=== PATIENT | female | born 1985 | race African-American/Black ===

== ENCOUNTER 2025-07-02 21:40 | Inpatient (IN) | payer SELFPAY ==
[2025-07-02] VITALS (7 sets, daily range): BP systolic 125–169; BP diastolic 84–109; BMI 48.0
--- NOTE | 2025-07-02 16:02 | ED.GENMED ---
History of Present Illness
General
Chief Complaint: Chest Pain
Source: patient
Exam Limitations: none
Time Seen by Provider: 07/02/25 15:02
History of Present Illness
History of Present Illness:
40-year-old female complaining of fever cough congestion chest pain crisis pain of her other joints and hemoptysis. Started a week ago with URI symptoms. Also at that time developed her typical crisis symptoms. Has a history of DVT PE. Has
stopped her Lovenox months ago. Shortness of breath is typical for her crisis but worse than normal.
Past History
Past History
ED Past Medical History: Other (Sickle cell crisis)
ED Past Surgical History: Appendectomy and Other (Perirectal abscess. Breast implants. [place] teeth)
Review of Systems
Review of Systems
All Other Systems: Not applicable
Constitutional: Reports fever and chills
Respiratory: Reports cough and hemoptysis
Cardiac: Denies syncope
ABD/GI: Denies abdominal pain
Phy Exam
Physical Exam
Physical Exam:
GENERAL: Alert and oriented. Nontoxic.
EYE: Orbits normal.
NECK: Supple, no significant adenopathy.
ENT: Pharynx without erythema
CARDIAC: Mildly tachycardic and regular no murmur
LUNGS: Clear breath sounds,normal
ABDOMEN: Soft, without focal tenderness or distention. Elevated BMI
NEUROLOGICAL: Alert and oriented , grossly non-focal
SKIN: Warm and dry, no rash or lesion, no discoloration, skin intact.
MUSCULOSKELETAL: No edema,no deformity.Good color
PSYCH: Normal and appropriate interaction.
Scores
Heart Score for Chest Pain Patients
STEMI patient?: Not applicable
Course
Orders/Labs/Results
Orders:
Orders
07/02/25 14:31
EKG [Electrocardiogram (*1)] Urgent
Reason for Study: Chest Pain
EKG- Treatment ONCE
07/02/25 Dinner
Regular
At Your Request: Full Participation
Does patient need a safe tray?: No
07/02/25 15:15
Electrocardiogram (*1) Stat
Reason for Study: Abdominal Pain
Cardiac Monitoring- Treatment ONCE
EKG- Treatment ONCE
HYDROmorphone [Dilaudid] 1 mg IV NOW STA
Lactated Ringers [Lr] 1,000 ml IV BOLUS
Test Result ONCE
Pulse Ox/cont/shift [RESP] Stat
Quantity: 1
07/02/25 15:16
CXR2 [CR Chest - 2 Views ] Urgent
Comment:
Reason For Exam: hemoptysis/sob
07/02/25 16:08
Diphenhydramine [Benadryl] 25 mg IV NOW STA
07/02/25 16:11
COVID-19 Antigen Urgent
Source: Nasal Swab
Complete Blood Count/With Diff Urgent
Comprehensive Metabolic Panel Urgent
HCG, Serum Qualitative Screen Urgent
Hemoglobin S Evaluation [S] Urgent
Comment: ADD ON
LDH Urgent
Comment: ADD ON
Lactic Acid Q4H
Comment: CANCEL 2nd LACTIC ACID IF 1st LACTIC ACID IS LESS THAN 2
Lipase Urgent
Reticulocyte Count Urgent
Influenza A+B Rapid Molecular Urgent
NATALI Source: Nasal Swab
Specimen Description:
07/02/25 16:26
Diphenhydramine [Benadryl] 25 mg IV NOW STA
07/02/25 17:03
Urinalysis Reflex To Culture Urgent
Date Specimen was Collected: 07/02/25
Time Specimen was Collected: 15:17
Urine Microscopic Reflex Cult Urgent
07/02/25 17:04
HYDROmorphone [Dilaudid] 1 mg .ROUTE .STK-MED ONE
07/02/25 17:05
HYDROmorphone [Dilaudid] 1 mg IV NOW STA
07/02/25 17:10
Hydrocortisone Sod Succinate [Solu-Cortef] 200 mg IV NOW STA
07/02/25 17:42
Add On- LAB Urgent
Tests Added?: ldh
07/02/25 17:58
CT Chest W/o Iv Contrast Urgent
Comment:
Reason For Exam: Hemoptysis
07/02/25 18:20
HYDROmorphone [Dilaudid] 2 mg IV NOW STA
07/02/25 19:27
Azithromycin 500 mg/250 ml [Zithromax Infusion] 500 mg in 250 ml IV NOW
CefTRIAXone [Rocephin] 1,000 mg IV NOW STA
07/02/25 19:39
O2 Therapy [RESP] Stat
Titrate/Wean O2 to maintain O2 sat greater than (%): 98
07/02/25 19:48
Acetaminophen 1000MG/100Ml [Ofirmev] 1,000 mg in 100 ml IV ONCE
Acetaminophen IV Indication:: ED Narcotic Naive Pt-ONCE
07/02/25 20:07
Diphenhydramine [Benadryl] 25 mg IV NOW STA
HYDROmorphone [Dilaudid] 2 mg IV NOW STA
07/02/25 20:23
Diphenhydramine [Benadryl] 50 mg IV NOW STA
07/02/25 20:44
0.9% Sodium Chloride 1000 ml [Nss] 1,000 ml IV BOLUS
07/02/25 21:14
Add On- LAB Stat
Tests Added?: Hemoglobin S evaluation
07/02/25 21:15
Admit/Transfer Patient As Directed
Co-Sign Provider:
Level of Care: Inpatient admission
Assign to:: Medical/Surgical
Physician / Group: Mic
Diagnosis: chest pain
Reason for Hospitalization: sickle cell crises
Expected length of stay greater than two midnights?: Yes
ELOS- Estimated Length of Stay in days: 2
I certify the patient meets the requirements for IP care: Yes
07/02/25 21:16
Type And Crossmatch [Type+Screen] Stat
07/02/25 21:22
PRN Pain Medication Management As Directed
May give lesser potent ordered pain med per pt: Yes
preference::
Protocol:: Medication orders for pain may be administered in a
manner that supports deferring to patient preference
when the pt is:
- Requesting an ordered lesser potent pain medication.
Least to most potent pain medications are defined
as: acetaminophen < NSAID < tramadol < opioids
(morphine, oxycodone, hydromorphone).
- Requesting a lesser dose of the same medication IF
ORDERED.
- Requesting a less intrusive route of administration
if both routes are prescribed by the provider (PO <
IV).
07/02/25 21:23
Code Status As Directed
Resuscitation Status: Full Code
07/02/25 21:32
Blood Culture Q30M
NATALI Source: Blood/Venous
Specimen Description:
Blood Culture Q30M
NATALI Source: Blood/Venous
Specimen Description:
07/02/25 22:00
0.9% Sodium Chloride 1000 ml [Nss] 1,000 ml IV 125 mls/hr
Bisacodyl [Dulcolax] 10 mg RECTAL [id number] PRN
Docusate W/Senna [Senokot-S] 1 tablet PO BIDPRN PRN
Ipratropium/Albuterol Sulfate [Duoneb] 3 ml INH R Q4HPRN PRN
Ondansetron Injectable [Zofran] 4 mg IV Q6HPRN PRN
Polyethylene Glycol Powder [Miralax] 17 grams PO DAILYPRN PRN
07/02/25 22:00
Activity As Directed
Activity Level: With Assistance
Sequential Compression Device [Pneumatic Compression Sleeves] As Directed
Type: Knee high
Vital Signs As Directed
Frequency: Per unit guidelines
DX Deep Vein Thrombosis Video Routine
07/02/25 22:37
HYDROmorphone [Dilaudid] 2 mg IV Q3HPRN PRN
Oxycodone [Roxicodone] 10 mg PO Q4HPRN PRN
07/03/25 00:00
Acetaminophen [Tylenol] 650 mg PO Q4HPRN PRN
07/03/25 08:00
Oxycodone Controlled Release [Oxycontin (Controlled Release)] 15 mg PO Q12
07/03/25 18:00
Azithromycin [Zithromax] 1,000 mg 0.9% Sodium Chloride 500 ml [Nss] 490 ml IV Q24H
CefTRIAXone [Rocephin] 1,000 mg IV Q24H
Abnormal Lab Results
07/02/25 07/02/25 07/02/25
16:11 17:03 21:16
RBC 3.31 L 10^6/uL
(4.20-5.40)
Hgb 8.9 L g/dL
(12.0-16.0)
Hct 28.9 L %
(37.0-47.0)
MCH 26.9 L pg
(27.0-31.0)
MCHC 30.8 L g/dL
(33.0-37.0)
RDW 16.7 H %
(11.5-14.5)
Absolute Monos (auto) 0.7 H 10^3/uL
(0.1-0.6)
Monocytes % 12.1 H %
(1.7-9.3)
Retic Count 3.0 H %
(0.4-2.8)
Sodium 132 L mmol/L
(135-145)
Glucose 206 H mg/dl
(70-99)
Lactate Dehydrogenase 293 H U/L
(120-246)
Ur Occult Blood Reflex 2+ A
(Negative)
Urine Bacteria (Reflex) Few A
(Negative)
Crossmatch IS Only See Detail
07/02/25 16:11
07/02/25 16:11
Vital Signs
Initial and Last Documented VS:
Initial Vital Signs
Temp Pulse Resp BP Pulse Ox
98.1 F 125 18 169/109 100
07/02/25 14:39 07/02/25 14:39 07/02/25 14:39 07/02/25 14:39 07/02/25 14:39
Last Documented Vital Signs
Temp Pulse Resp BP Pulse Ox
98.7 F 126 22 111/63 99
07/04/25 11:08 07/04/25 07:00 07/04/25 07:00 07/04/25 07:00 07/04/25 09:34
MDM/Problems Addressed
Differential Diagnosis Includes:
Large differential for patient's conglomerate of symptoms. Chest pain muscle pain shortness of breath myalgias. Differential would include crisis, pneumonia, viral infection, PE. Workup in progress.
*Radiology
Radiology exam reviewed: preliminary read by ED provider (Negative), radiology read reviewed (Negative chest x-ray) and other (Multiple centrilobular ground glass opacities left upper lobe and right middle and lower lobe pulmonary hemorrhage or
pneumonia)
*Pulse Oximetry
SaO2: 100
Oxygen Mode of Delivery: Room air
Patient hypoxic: no
*EKG
Interpreted by ED Provider?: Yes
Interpretation: abnormal
Comparison EKG: no comparison EKG present
Heart Rate: 99
Rate: normal
Rhythm: sinus
[place]: normal axis
Interval: normal interval
QRS Pattern: right bundle branch block (inc)
Ischemia: no ischemia
*Critical Care Note
Total Time (30-74mins, 75-104mins- exclusive of procedures): 45
Update Note
Update Note:
Patient will be admitted for sickle crisis. Cannot totally rule out PE as she states she has had severe life-threatening issues unless she has a prolonged prep for the CT scan. She is supposed to be on Lovenox. Last episode of hemoptysis was this
morning. I lean towards starting heparin pending PE study. Will be admitted for further care
1800... Multiple discussions with pulmonary and with hematology. The feeling as if the hemoptysis is not from bronchiectasis or mass that heparinization is very reasonable. Will get a plain CT and if negative will heparinize.
Patient states she typically gets 2 mg of Dilaudid. I was reluctant earlier. She is on chronic opioids. She states she tolerates this well.
193.... Patient's pulse ox is 100%. With the possibility of pulmonary hemorrhage and describing significant hemoptysis, we will hold on anticoagulation pending the ability to do CT angiography. Will treat for pneumonia. Pulmonary has been looped
in with this discussion
ED Attending Note
-
Portions of this chart may have been created with voice recognition software.� Occasional wrong word or��sound alike� substitutions may have occurred due to the inherent limitations of voice recognition software.
Discharge Plan
Departure
Patient Disposition: Admit
Date of Disposition: 07/02/25
Time of Disposition: 17:11
Presentation/result/management discussed w/ accepting MD/DO: Hospitalist
Discharge Problem:
Sickle cell crisis acute chest syndrome, Pulmonary hemorrhage versus multilobar p, To consider pulmonary emboli, HIV (human immunodeficiency virus infection), [id number] transgender person
Interventions
Interventions:
*Risk Screen - Suicide Last Done: 07/02/25 14:39
*General Assessment Last Done: 07/02/25 14:39
*Neglect/Abuse Screening Last Done: 07/02/25 14:39
*ED- Fall Risk Assessment Last Done: 07/02/25 17:02
*Nursing Disposition Last Done: 07/02/25 23:00
ED- Cardiac Assessment Last Done: 07/02/25 16:32
Discharge Date and Time
Discharge Date/Time: 07/02/25 23:00
[2025-07-02] MEDS: BENADRYL 25 MG IV ×3 (16:13→20:30)
[2025-07-02] MEDS: DILAUDID 1 MG IV ×2 (16:13→17:05)
[2025-07-02] MEDS: LR 1000 IV (16:13)
[2025-07-02 16:25] LABS: Hematocrit 28.9 % (37.0-47.0); Hemoglobin 8.9 g/dL (12.0-16.0); Mean Corp Hgb Conc. 30.8 g/dL (33.0-37.0); Mean Corpuscular Volume 87.3 fL (81.0-99.0); Nucleated Red Blood Cells % 0 %; Platelet Count 182 10^3/uL (130-400); Red Cell Dist. Width 16.7 % (11.5-14.5); Reticulocyte Count 3.0 % (0.4-2.8)
[2025-07-02 16:37] LABS: HCG, Serum Qualitative Screen Negative
[2025-07-02 16:40] LABS: ALT (SGPT) 19 U/L (0-35); AST (SGOT) 14 U/L (14-36); Albumin 3.7 g/dl (3.5-5.0); Alkaline Phosphatase 83 U/L (38-126); Blood Urea Nitrogen 11 mg/dl (7-17); Calcium 8.8 mg/dl (8.4-10.2); Carbon Dioxide 29 mmol/L (22-30); Chloride 103 mmol/L (98-107); Glucose 206 mg/dl (70-99); Lipase 28 U/L (23-300); Potassium 3.9 mmol/L (3.5-5.1); Sodium 132 mmol/L (135-145); Total Protein 6.6 g/dl (6.3-8.2); eGFR > 60.00
[2025-07-02 16:48] LABS: COVID-19 Antigen Negative (Negative)
[2025-07-02 17:14] LABS: Urine Character Clear (Clear)
[2025-07-02] MEDS: SOLU-CORTEF 200 MG IV (17:37)
[2025-07-02 17:41] LABS: Urine Red Blood Cell 0-2 /HPF (0-2); Urine White Cell 0-2 /HPF (0-5)
[2025-07-02 18:12] LABS: LDH 293 U/L (120-246)
[2025-07-02] MEDS: DILAUDID 2 MG IV ×3 (18:46→23:36)
[2025-07-02] MEDS: ROCEPHIN 1000 MG IV (19:58)
[2025-07-02] MEDS: OFIRMEV 100 IV (20:04)
[2025-07-02] MEDS: ZITHROMAX INFUSION 250 IV (20:10)
[2025-07-02] MEDS: NSS 1000 IV ×2 (20:44→23:36)
--- NOTE | 2025-07-02 21:04 | HPS.HSE ---
Family Physician
-
Family Physician: * NONE
Chief Complaint
-
Chest pain
History of Present Illness
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
presents to the emergency department with development of chest pain in the setting of a recent cough and URI symptoms.
Patient reported that she was at a formal gathering recently with multiple sick contacts. Stated that she started having cough about 2 days ago and then developed hemoptysis that today. She says she is coughing up blood and clots. She reports
pain in the chest as well as in back spine hips and legs. She reported subjective fevers at home. She reported feeling short of breath. She denies any lower extremity swelling. She denies any calf tenderness.
Patient reported that she she discontinued Lovenox for venous thrombosis in few months ago. She had been placed on Lovenox due to not tolerating frequent blood checks for INR on Coumadin. She is amendable to restarting on Coumadin. She reported
that lasted. Crisis was about 6 months ago that required hospitalization. Generally she manages crises at home. She is on hydroxyurea as well is OxyContin 30 mg every 12 and Oxy IR 20 mg every 4 as needed when in times of crisis. No medication
can be confirmed on PDMP. Patient reports that she is from [place].
In the emergency department she was satting 99% on room air but was placed on oxygen for comfort. Blood pressure was 147/101, pulse was 113 and temperature was 98.1. CBC had a white count of 5.4, hemoglobin 8.9 plate count of 182. Electrolytes
BUN/creatinine were all normal. T. bili was 0.5, LDH 290, reticulocyte count was 3%.
ECG shows normal sinus rhythm at a rate of 99 with incomplete right bundle and no acute ST or T wave changes. Chest x-ray with normal heart size and no evidence of acute pulmonary edema or acute infiltrates. She does have a right IJ Mediport cath
in place for iron infusions.
CT of the chest without contrast shows ground glass opacities in the left upper lobe and a single ground glass opacity in the right middle lobe with diagnostic possibilities include acute pulmonary hemorrhage or secondary to pneumonia
Medical History
Past Medical History
Past Medical History: Reports Other (Sickle cell, male to female transition, HIV on Biktarvy)
Past Surgical History: Reports Appendectomy
Social History
Tobacco: Non-smoker
Alcohol: Occasional
Drug: None
Living: With Family
Family History
Family History: Not pertinent
Allergies / Home Medications
Allergies reflects when Allergies were last updated in [facility].
Home Medications with original date entered in [facility]
Allergy/Medication List:
Allergies
Allergy/AdvReac Type Severity Reaction Status Date / Time
NSAIDS (Non-Steroidal Allergy Unknown Verified 07/02/25 14:38
Anti-Inflamma
Iv contrast Allergy Unknown Uncoded 07/02/25 14:38
Unconfirmed patient report
Hydroxyurea 500 mg tablet, 500 mg p.o. twice daily
Folic acid 5 mg tablets, 5 mg p.o. daily
Biktarvy 50-28-25 tablets, 1 tablets p.o. daily
Aldactone 100 mL tablets, 100 mg p.o. twice daily
OxyContin 30 mg tablets, 30 mg p.o. every 12
Review of Systems
-
Constitutional: Reports No Symptoms
EENT: Reports No Symptoms
Respiratory: Reports No Symptoms
Cardiac: Reports No Symptoms
Abdomen/GI: Reports No Symptoms
: Reports No Symptoms
Musculoskeletal: Reports No Symptoms
Skin: Reports No Symptoms
Neurological: Reports No Symptoms
Endocrine: Reports No Symptoms
Hematologic/Lymphatic: Reports No Symptoms
Psych: Reports No Symptoms
Physical Exam
Vital Signs
Vital Signs
Temp Pulse Resp BP Pulse Ox
98.1 F 113 23 147/101 99
07/02/25 14:39 07/02/25 20:30 07/02/25 20:30 07/02/25 18:00 07/02/25 20:30
Physical Exam
General: Well Developed, Well Nourished and No Apparent Distress
HEENT: NormoCephalic, Moist mucous membranes and Atraumatic
Respiratory: Clear
Cardiac: S1/S2 and Regular Rhythm; No Murmur or Rub
GI: Soft, Non Tender, Non Distended and Normal Bowel Sounds; No Organomegaly
Rectal: Deferred by Provider
Musculoskeletal: No Clubbing, No Cyanosis and No Edema
Skin: No Rash
Neuro: AO x 3 and Nonfocal/grossly intact
Laboratory Results
-
07/02/25 16:11
07/02/25 16:11
Laboratory Results
Lactic Acid Cancelled 07/02/25 19:15
Total Bilirubin 0.5 mg/dl (0.2-1.3) 07/02/25 16:11
AST 14 U/L (14-36) 07/02/25 16:11
ALT 19 U/L (0-35) 07/02/25 16:11
Alkaline Phosphatase 83 U/L (38-126) 07/02/25 16:11
Lipase 28 U/L (23-300) 07/02/25 16:11
Data Reviewed
-
Diagnostic Radiology: Image Personally Visualized and interpreted and Report Reviewed by me
CT Scan: Report Reviewed by me
Medical Tests (Nuc Med, Echo, EKG etc): Image Personally Visualized and interpreted
Lab Data: Labs Reviewed by me
Old Records: Reviewed
Impression/Plan
-
IMPRESSION:
40-year-old female with past medical history significant for venous embolism/ PE, HIV, male to female transition presented to the emergency department with chest pain and shortness of breath and found to have multifocal infiltrates on CT scan. She
did have hemoptysis and concern for possible alveolar hemorrhage. She self discontinued anticoagulation (previously on Lovenox and prior to that was on Coumadin). We cannot rule out recurrent PE. She does not have a fever. She has no
leukocytosis. She is satting 99% on room air. Otherwise well-appearing.
PLAN:
Chest pain/acute chest syndrome -CT scan shows infiltrates consistent with acute chest syndrome in a patient with sickle cell crisis. No hypoxia. LDH is slightly elevated at 23, reticulocyte is only 3% which is not elevated overall. Bilirubin is
completely normal. CBC is otherwise unremarkable.
- Admit to telemetry
- Will start on IV ceftriaxone and azithromycin
- Blood cultures afebrile
- Continue oxygen for comfort
- No indication for transfusion at that time, type and screen for now, trend H&H
Sickle cell pain crisis -patient reports history of sickle cell with pain crisis and picture is consistent with some degree of sickle cell.
- Check hemoglobin S
- Will treat empirically a sickle cell pain crisis for now with IV fluids and IV Dilaudid as needed with continuation of OxyContin
- Could not verify any of her medications start IV PDMP or medications. She states that she is from [place] and visiting for a
- Continue hydroxyurea and folic acid
PE -mom cannot rule out PE at this time. Patient has had a history of multiple thrombosis and needs to be on indefinite anticoagulation. I do not think there is a necessity for a CT PE at this time.
- Start anticoagulation with heparin, no bolus and monitor for further bleeding
- Transition to Coumadin once therapeutic
- Hematology oncology consult
CODE STATUS�full code
--- NOTE | 2025-07-02 23:25 | PTCARENOTE ---
Pt received from ED to rm [id number]. Pt oriented to room and call sotelo.
[2025-07-03] MEDS: BENADRYL 25 MG IV ×4 (02:18→20:37)
[2025-07-03] MEDS: DILAUDID 2 MG IV ×4 (02:21→11:43)
[2025-07-03 03:42] VITALS: BP 134/82
--- NOTE | 2025-07-03 04:20 | PTCARENOTE ---
Responded to Code Ganga called on patient for getting agitated and threw her tele box. Not explaining exactly why she is upset but insisting on leaving AMA stating 'You can't hold me here'. Only stating that we won't do what she wants but is not
specific on what that is. Dr. Holm notified of pt wanting to leave.
--- NOTE | 2025-07-03 06:04 | VATNOTE ---
UNABLE TO OBTAIN ANY BLOOD RETURN FROM R TUNN DL PICC. BOTH LUMENS FLUSH EASILY. PT UNABLE TO LIE FLAT OR TURN OVER OR DEEP BREATHE OR ANY OTHER REQWUESTS TO PROMOTE A BR DUE TO HER EXCRUTIATING PAIN. INFORMED PCN. VAT TO FOLLOW.
[2025-07-03] MEDS: NSS 1000 IV ×3 (06:23→23:55)
[2025-07-03 07:00] VITALS: BP 157/109
[2025-07-03] MEDS: OXYCONTIN (CONTROLLED RELEASE) 15 MG PO (08:20)
--- NOTE | 2025-07-03 09:30 | VATNOTE ---
07/02 @ 0930 - assessment of Right subclavian tunneled DL PICC performed. easy flush to both lumens. Does not give blood return. Pt reports getting PICC placed approximately 3 weeks ago for IVF infusions at home r/t sickle cell anemia. Pt unable to
recall 'where' PICC was placed. Patient declining cathflo at this time. Pt stating 'please come back later and try again... I think the PICC will give blood return if we try again in a few hours' Pt educated on importance of maintaining patency with
both lumens of PICC line, and Cath Max would be best at this time. Pt still declining this treatment. Pt and I agreed to come back around 1230 for another reassessment of PICC line. Alternative method for AM blood discussed with patient, as
phlebotomy had 2 unsuccessful attempts this morning. Pt refusing additional attempt of straight stick at this time and said to try again through PICC line later this afternoon. made aware for lab delay.
--- NOTE | 2025-07-03 10:11 | CON.ONC ---
Documented by User: JORGE LUIS Stapleton 07/03/25 11:54
Consultation
-
Date Consultation Requested: 07/03/25
Date Consultation Performed: 07/03/25
Requesting Provider: Mitchell Ley
Performing Provider: Dr. Sukhjinder Calderon
Reason for Consultation: Sickle cell
Impression
Impression
Sickle cell
anemia, unclear baseline -currently retic 3, LDH 293, and nml LFTs do not suggest aggressive hemolysis
chronic pain on chronic narcotics
hx VTE
HIV on Biktarvy
Plan
Plan
f/u pulmonary consult for GGO and hemoptysis
check LE US
consider at least DVT ppx if no objections by pulmonary based on CT findings and hemoptysis
continue home Hydrea, folic acid
ensure adequate hydration, supplemental O2 prn
pain management per primary service while hospitalized, has a automotive painter helper OP
bowel regimen prn constipation
check heme stool, iron studies, b12, folate
f/u haptoglobin
check Hgb electrophoresis, AKA hemoglobin evaluation with reflex per lab -ordered
Plans to return to her primary transcripter in [place] after discharge
Discussed case with the primary service
Patient History
History of Present Illness
40yo biological male, identifies as female from [place] with PMH HIV, sickle cell, and DVT who presented with chest pain, SOB, hemoptysis, and subjective fever. She reports that she had a recent URI with cough and fever in the setting of multiple sick
contacts at a gathering 2 days ago. She developed chest pain and hemoptysis, chest, back, b/l hip, and bilateral leg pain today that prompted her to seek, further evaluation in the ER. Initial evaluation was notable for Hgb 8.9 with a normal WBC and
platelet count. Her reticulocyte count is 3, LDH 293, normal LFTs, and is haptoglobin pending. Her influenza was negative. Her CXR showed no pneumonia. Her CT chest w/o contrast showed multiple centrilobular ground glass opacities in the JEREMI and a
single ground glass opacity in the RML and LLL , and mild splenomegaly. She was admitted, started on ceftriaxone and azithromycin, given a dose of hydrocortisone, 1L LR, 1L NS started on hydromorphone prn pain. She notes that she is on hydrea and
folic acid for her Sickle cell. I am unclear regarding Hgb baseline.
Afebrile, no hypoxia or hypotension.
Past-Medical/Surgical History
PMH sickle cell, DVT, HIV, b/l hip osteoarthritis
PSH appendectomy, breast implants, wisdom teeth
Social never smoker, denies ETOH or recreational drugs
Family sickle cell
Patient Medication
�Medication �Instructions �Recorded �Confirmed �Last Taken �Type
bictegravir 50 mg-emtricitabine 1 tab PO DAILY ANTIVIRAL 07/03/25 07/03/25 07/03/25 History
200 mg-tenofovir alafenam 25 mg
tablet (Biktarvy)
folic acid 1 mg tablet 5 mg PO DAILY Supplement 07/03/25 07/03/25 07/03/25 History
hydroxyurea 500 mg capsule 500 mg PO BID CHEMO 07/03/25 07/03/25 07/03/25 History
oxycodone 20 mg tablet 20 mg PO Q4H PRN pain 07/03/25 07/03/25 07/03/25 History
oxycodone 30 mg tablet,extended 30 mg PO BID Pain 07/03/25 07/03/25 07/03/25 History
release,12 hr
spironolactone 100 mg tablet 100 mg PO BID Fluid 07/03/25 07/03/25 07/03/25 History
(Aldactone) Retention/Swelling
Active Medications
Generic Name Dose Route Start Last Admin
Trade Name Freq PRN Reason Stop Dose Admin
Acetaminophen 650 mg 07/03/25 00:00
Acetaminophen 325 Mg Tablet PO 07/31/25 00:00
Q4HPRN PRN
mild pain/DUDLEY/temp> 100.4F
Albuterol/Ipratropium 3 ml 07/02/25 22:00
Ipratropium 0.5/Albuterol 3 Mg (3 Ml Ampul) INH
R Q4HPRN PRN
shortness of breath
Protocol
Alteplase, Recombinant 2 mg 07/03/25 10:02
Alteplase (Cathflo) (1 Mg/Ml) 2 Mg Vial INTRACATH 07/03/25 10:03
NOW STA
Bisacodyl 10 mg 07/02/25 22:00
Bisacodyl 10 Mg Rectal Suppository RECTAL 07/30/25 21:59
[id number] PRN
constipation
Ceftriaxone Sodium 1,000 mg 07/03/25 18:00
Ceftriaxone 1000 Mg / 10 Ml Vial IV
Q24H LENARD
Diphenhydramine HCl 25 mg 07/03/25 02:00 07/03/25 08:22
Diphenhydramine 50 Mg/Ml 1 Ml Vial IV 07/31/25 01:59 25 mg
Q6HPRN PRN Administration
itching
Hydromorphone HCl 2 mg 07/02/25 22:37 07/03/25 08:27
Hydromorphone 1 Mg/Ml Carpuject IV 07/16/25 22:36 2 mg
Q3HPRN PRN Administration
severe pain
Sodium Chloride 1,000 mls @ 125 mls/hr 07/02/25 22:00 07/03/25 06:23
Nss IV 1,000 mls
.Q8H LENARD Administration
Azithromycin 1,000 mg/ Sodium 500 mls @ 500 mls/hr 07/03/25 18:00
Chloride IV
Q24H LENARD
Ondansetron HCl 4 mg 07/02/25 22:00
Ondansetron 4 Mg/2 Ml Vial IV 07/30/25 21:59
Q6HPRN PRN
nausea and vomiting
Oxycodone HCl 10 mg 07/02/25 22:37
Oxycodone 10 Mg Regular Release Tablet PO 07/16/25 22:36
Q4HPRN PRN
moderate pain
Oxycodone HCl 15 mg 07/03/25 08:00 07/03/25 08:20
Oxycontin 15 Mg Controlled Release Tablet PO 07/17/25 07:59 15 mg
Q12 LENARD Administration
Polyethylene Glycol 17 grams 07/02/25 22:00
Polyethylene Glycol Powder 17 Grams Packet PO 07/30/25 21:59
DAILYPRN PRN
constipation
Senna/Docusate Sodium 1 tablet 07/02/25 22:00
Docusate W/Senna (Soni-Colace) Tablet PO 07/30/25 21:59
BIDPRN PRN
constipation
Sodium Chloride 0 flush 07/02/25 23:00
Sodium Chloride 0.9% (Flush) Syringe IV 07/30/25 22:59
PER PROTOCOL LENARD
Review of Systems
-
ROS is notable for HPI, otherwise negative
Physical Exam
-
PICC line, internal pain pump
General: Well Developed, Well Nourished and Other (ambulating )
HEENT: Moist Mucous Membranes; Negative Jaundice
Pulmonary: Other (unlabored)
GI: Soft
Extremities: Pulses Present
Neurology: Non Focal
Skin: Warm
Psych: Calm
Labs
Lab Results
WBC 5.4 10^3/uL (4.8-10.8) 07/02/25 16:11
RBC 3.31 10^6/uL (4.20-5.40) L 07/02/25 16:11
Hgb 8.9 g/dL (12.0-16.0) L 07/02/25 16:11
Hct 28.9 % (37.0-47.0) L 07/02/25 16:11
MCV 87.3 fL (81.0-99.0) 07/02/25 16:11
MCH 26.9 pg (27.0-31.0) L 07/02/25 16:11
MCHC 30.8 g/dL (33.0-37.0) L 07/02/25 16:11
RDW 16.7 % (11.5-14.5) H 07/02/25 16:11
Plt Count 182 10^3/uL (130-400) 07/02/25 16:11
MPV 8.9 fL (7.4-10.4) 07/02/25 16:11
Abs Immat Gran (auto) 0.0 10^3/uL (0-0.05) 07/02/25 16:11
Absolute Neuts (auto) 2.4 10^3/uL (1.4-6.5) 07/02/25 16:11
Absolute Lymphs (auto) 2.3 10^3/uL (1.2-3.4) 07/02/25 16:11
Absolute Monos (auto) 0.7 10^3/uL (0.1-0.6) H 07/02/25 16:11
Absolute Eos (auto) 0.1 10^3/uL (0-0.7) 07/02/25 16:11
Absolute Basos (auto) 0.0 10^3/uL (0-0.2) 07/02/25 16:11
Immature Gran % 0.2 % (0-0.5) 07/02/25 16:11
Neutrophils % 43.4 % (42.2-75.2) 07/02/25 16:11
Lymphocytes % 42.6 % (20.5-51.1) 07/02/25 16:11
Monocytes % 12.1 % (1.7-9.3) H 07/02/25 16:11
Eosinophils % 1.3 % (0-6) 07/02/25 16:11
Basophils % 0.4 % (0-2) 07/02/25 16:11
Creatinine 0.9 mg/dL (0.6-1.0) 07/02/25 16:11
Vital Signs
Vital Signs
Temp Pulse Resp BP Pulse Ox
97.8 F 88 18 157/109 100
07/03/25 07:00 07/03/25 07:00 07/03/25 07:00 07/03/25 07:00 07/03/25 07:00

Documented by User: Sukhjinder Calderon MD 07/03/25 14:41
Plan
Plan
f/u pulmonary consult for GGO and hemoptysis
check LE US
consider at least DVT ppx if no objections by pulmonary based on CT findings and hemoptysis
continue home Hydrea, folic acid
ensure adequate hydration, supplemental O2 prn
pain management per primary service while hospitalized, has a automotive painter helper OP
bowel regimen prn constipation
check heme stool, iron studies, b12, folate
f/u haptoglobin
check Hgb electrophoresis, AKA hemoglobin evaluation with reflex per lab -ordered
Plans to return to her primary transcripter in [place] after discharge
Discussed case with the primary service
Hematology Addendum:
Patient seen and evaluated and agree w/ [employer] note and plan as outlined
-sickle cell disease - followed in [place]
-hemoglobin holding 8.9g/dl - w/ reticulocyte count of 3% - does not suggest significant hemolysis
-cont hydrea and folic acid as per home medication regimen
-pain management as per primary service
-hemoglobin electrophoresis pending
-anticoagulation on hold w/ recent hemoptysis - pulmonary following
f/u w/ primary transcripter in [place]
[2025-07-03 11:00] VITALS: BP 151/95
--- NOTE | 2025-07-03 12:04 | PTCARENOTE ---
07/03- Patient is upset because 'you're 15minutes late with my dilaudid. What you got for me?' when this RN approached patient with her PRN dilaudid as requested. Patient does not appear in pain. Relaxed sitting in bed with relaxed affect but
anxious. Advised this is her PRN dilaudid. Patient then calmed down and thanked this RN asking to 'push it quick.' Advised it must be pushed slowly. Patient was not happy with this but accepted. She states she lives in [place], denies being in
any other [facility], and that she is only here for her Mom's which happened 3 weeks ago. She stated she'll sign consent for her clinic in [place] to get her medical and medication hx which she already gave to the Physician.
--- NOTE | 2025-07-03 13:29 | CM ---
Patient seen bedside, initial assessment completed. Patient is a 40-year-old female who reports a past medical history of sickle cell with sickle cell crisis, history of DVT PE previously on anticoagulation, HIV on Biktarvy, chronic pain with
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
Patient lives in [place] but is staying w/ her sister in [place], patient came to attend her mother's a few weeks ago. Patient has plans to return to [place] next week. Patient is independent in all areas. Inpatient rehab hx following a
stroke years ago. Sister's home is a 3ST[facility], 8/10 steps to enter from the outside. Patient is listed as self pay, however, patient says she has [employer] but doesn't have the insurance information.
Plan: D/c to sister's home, no needs
--- NOTE | 2025-07-03 13:36 | W.PN.HOSP.TC ---
Today's Communication/Plan
-
see outlined plan
Assessment / Plan
Assessment / Plan
Assessment:
Chest pain
Hemoptysis
Community acquired pneumonia
- CT: MULTIPLE CENTRILOBULAR GROUND-GLASS OPACITIES in the LEFT UPPER LOBE and single ground-glass opacities in the right middle and left lower lobe. Diagnostic possibilities are (1) acute pulmonary hemorrhage (probably most likely given the history
of hemoptysis) or (2) pneumonia.
- check procal
- continue Rocephin, Azithromycin, day 2. Follow cultures
- no indication for O2 therapy
- Pulmonary consultation
hx of sickle cell disease
- LDH 293 (normal up to 245)
- retic 3%
- bilirubin normal
- haptoglobin pending
- Hb S pending
- unlikely acute sickle crisis
- no indication for transfusion at this time
- continue IVF
- continue Hydrea/Folic acid
- pain control - On OxyContin 10mg q12h; plus oxycodone 5mg q4h prn. Decreased Dilaudid frequency to q6h, dose from 2mg to 1mg and will dc Dilaudid in 24 hours. concurrent bowel regimen.
- no PDMP verification possible as patient states she is visiting from [place]
- states that she is cared for at [facility] - called, only open weekends (11 AM to 1 PM)
- check anemia indices
- check LE US
- CT was not a PE study
hx of HIV
- on Biktarvy
DVT ppx: SCDs; Lovenox if ok with pulmonary
Code: Full
Anticipated Discharge: > 48 hours
Subjective/Interval History
-
Date of Service: July 03, 2025
reports some mild hemoptysis, chest pain
100% on RA
reports 8 to 10 on pain scale, asking for Dilaudid repeatedly
Objective Data
-
Labs:
Laboratory Results
07/03/25
06:00
Sodium Pending
Potassium Pending
Chloride Pending
Carbon Dioxide Pending
BUN Pending
Creatinine Pending
Glucose Pending
Calcium Pending
Vital Signs:
Vital Signs
Temp Pulse Resp BP Pulse Ox
98.2 F 105 18 151/95 100
07/03/25 11:00 07/03/25 11:00 07/03/25 11:00 07/03/25 11:00 07/03/25 11:00
I&O
07/02/25 07/03/25 07/04/25
06:59 06:59 06:59
Intake Total 480 / 480
Balance 480 / 480
Physical Exam
-
General: No Apparent Distress
HEENT: Normocephalic and Atraumatic
Respiratory: Negative Wheezes
Cardiac: Regular Rhythm and S1/S2
GI: Soft and Nontender
Neuro: AO x 3
Psych: Calm
Data Reviewed
-
Total Time Spent with Patient (in minutes): 45
Labs: Labs Reviewed by me
--- NOTE | 2025-07-03 13:53 | CON.PUL ---
Consultation
Consultation Request
Date/Time Consultation Requested: 07/03/2024
Date/Time Consultation Performed: 07/03/2024
Requesting Provider: Dr. Holm
Performing Provider: Dr. Kristofer Lassiter
Reason for Consultation: Hypoxemic respiratory failure-abnormal CT chest
Medical History
-
History of Present Illness:
40-year-old woman past medical history of sickle cell disease, history of DVT and PE previously on anticoagulation, HIV on Biktarvy, chronic pain with bilateral hip osteoarthritis, male to female transition came to the emergency room complaining of
cough, upper respiratory symptoms and chest pain.
Patient recently had a gathering with multiple sick contacts. Next cough started about 2 days ago and developed mild hemoptysis day of admission.
Reports arthralgias.
Subjective fevers
Denies GERD or swallowing problems.
Denies lower extremity swelling.
-
Denies hematuria.
-
Few months ago she discontinued Lovenox that she took for her DVT.
She was placed on Lovenox that she did not tolerate Coumadin with frequent laboratory testing
-
In regards to sickle cell apparently last crisis was about 6 months ago.
Currently on hydroxyurea and narcotics for pain as needed.
She is originally from [place].
-
Patient has a right IJ port for iron infusions.
-
I was consulted for evaluation of abnormal CT chest. CT chest showed left upper lobe and right middle lobe ground glass opacities.
Past Medical History
Past Medical History: Other (See assessment and plan)
Social History
Tobacco: Non-smoker
Alcohol: Occasional
Drug: None
Living: With Family
Family History
Family History: Reviewed & Not Pertinent
Allergies / Home Medications
Allergies
Allergy/AdvReac Type Severity Reaction Status Date / Time
NSAIDS (Non-Steroidal Allergy Unknown Verified 07/02/25 14:38
Anti-Inflamma
Iv contrast Allergy Unknown Uncoded 07/02/25 14:38
Home Medications
�Medication �Instructions �Recorded �Confirmed �Last Taken �Type
bictegravir 50 mg-emtricitabine 1 tab PO DAILY ANTIVIRAL 07/03/25 07/03/25 07/03/25 History
200 mg-tenofovir alafenam 25 mg
tablet (Biktarvy)
folic acid 1 mg tablet 5 mg PO DAILY Supplement 07/03/25 07/03/25 07/03/25 History
hydroxyurea 500 mg capsule 500 mg PO BID CHEMO 07/03/25 07/03/25 07/03/25 History
oxycodone 20 mg tablet 20 mg PO Q4H PRN pain 07/03/25 07/03/25 07/03/25 History
oxycodone 30 mg tablet,extended 30 mg PO BID Pain 07/03/25 07/03/25 07/03/25 History
release,12 hr
spironolactone 100 mg tablet 100 mg PO BID Fluid 07/03/25 07/03/25 07/03/25 History
(Aldactone) Retention/Swelling
Review of Systems
-
History Source: Patient
All other systems: Negative unless noted
Vitals / Labs / Diagnostic Testing
Vital Signs
Temp Pulse Resp BP Pulse Ox
98.2 F 105 18 151/95 100
07/03/25 11:00 07/03/25 11:00 07/03/25 11:00 07/03/25 11:00 07/03/25 11:00
Microbiology
07/02/25 16:11 Nasal Swab Influenza Types A & B (DAXA) - Final
Negative for Influenza A & B, NAAT
Negative results must be combined with clinical observations
and patient history.
Nucleic Acid Amplification test (NAAT)performed on the
[employer] platform.
Diagnostic Testing:
Physical Exam
-
HEENT: Normocephalic
Cardiovascular: S1/S2
Respiratory: Non-Labored Respirations
GI: Soft and Non Distended
Neurology: Awake, AO x 3 and No Motor Deficits
General: Comfortable
Assessment
-
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
CT chest showed ground glass opacities suggestive of infectious pneumonitis. Consulted on 07/03/[address]: Multiple centrilobular ground glass opacities left upper lobe, right middle lobe and left lower lobe.
Suspect infectious pneumonitis
Doubt diffuse alveolar hemorrhage
Hemoptysis-mild
Cough/chest pain-likely secondary to above.
History of sickle cell disease: Doubt acute chest syndrome.
Unclear baseline hemoglobin-she is originally from [place]
Reticulocyte count 3%
LDH 293
Normal LFTs
Conditions present prior admission:
HIV
Sickle cell anemia
Chronic pain on narcotics
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
Assessment and plan:
Patchy bilateral ground glass opacities: Will treat for infectious pneumonitis.
COVID and flu negative.
Currently on room air with adequate oxygenation. Not in resp. distress.
Does not appear toxic
Afebrile
-
Monitor for acute chest syndrome-currently not suspected but pt complaints of pain all over-- asking for more pain meds.
She is upset and would like more pain meds.
Not on supplemental oxygen therapy.
-
Agree with hydration.
No strong evidence for sickle cell crisis-hematology following.
Hemoptysis could be related to infectious etiology.
Agree with ceftriaxone/azithromycin for now.
-
Will quantify hemoptysis for the next 24 to 48 hours.
Nursing has not see hemoptysis
I explained pt that will need to see evidence of bleeding and quantify to determine AC candidacy.
Ok with DVT prophylaxis for now from my end.
If not activily having hemoptysis or is only mild, ok with full AC if necessary.
-
If there is no clinical improvement with antibiotics further evaluation for hemoptysis may be necessary- Including CT angio.
At this point LFTs normal.
Hemoglobin low due to sickle cell disease-unknown baseline.
UA without active sediment.
-
Agree with DVT prophylaxis for now
Hematology correspondence reviewed: Lower extremity Dopplers ordered. History of DVT unclear situation. She was treated with Lovenox per patient report and she stopped several months ago.
Unclear if provoked or unprovoked- Pt states that she has been on AC most of her life--> stopped Lovenox 4m ago.
Will defer AC to hematology.
-
Will follow
Ultimately, patient will need radiographic follow-up after discharge- She understands this.
-
She is from [place] and visiting relatives for the last two weeks.
--- NOTE | 2025-07-03 14:10 | PTCARENOTE ---
07/03- As per order, asked patient if she was having hemoptysis. She states she was but is not anymore. No hemoptysis currently observed, and no evidence of hemoptysis (tissues, in trashcan, cups, etc). Patient also asked why I just gave her 25mg
Benadryl. I stated the order is for 25mg. She stated, 'no, it was 50mg for the nurse last night. Why is it only 25mg now?' Advised the 50mg was D/New last night, and it has been 25mg all day as of today. She then looked upset and stated, 'ok
just when can you discharge me?' At that time, Dr. Haile came in room to talk to patient.
[2025-07-03] MEDS: CATHFLO/ACTIVASE 2 MG INTRACATH (14:51)
--- NOTE | 2025-07-03 14:58 | PN.CDI ---
CDI
- -
CDI:
Physician Documentation Request
Admit Date: 07/02/25 21:40
Dear Doctor Mihai,
Clinical Indicators:
Height: 6 ft 1 in
Weight: 363 lbs 12.2 ooz
BMI: 48.0
If possible, please provide an associated diagnosis related to the abnormal BMI (> or = to 40), such as:
Severe or morbid obesity
Obesity
Other
Use of terms such as suspected, likely, concern for, or probable (associated with a specific diagnosis that is being evaluated, monitored, or treated as if it exists) are acceptable and can be coded in the inpatient setting, when documented at the
time of discharge.
Thank you,
ABDIRIZAK Alfonso RN
CDI Specialist
available via tiger text
Please use your independent medical judgment in providing your response.
[2025-07-03 15:00] VITALS: BP 156/104
--- NOTE | 2025-07-03 15:00 | PTCARENOTE ---
07/03- Patient states, 'I don't feel so well now. I can't see, and my left arm is numb and losing function.' When performing NIH, patient was fluttering eyelids and unable to score on the eye assessments. No facial droop. When holding arms up,
she drifted her LUE down to bed and LLE gradually against gravity. NIH score currently is a 6 based off of her NIH performance. Called Stroke Alert.
--- NOTE | 2025-07-03 15:04 | VATNOTE ---
07/03 @ 1500 - CathFlo instilled for absence of blood return in both lumens of Right Subclavian PICC. Upon administration, Pt c/o left sided weakness, headache and blurry vision. Pt was evaluated by MD Lassiter prior to the sudden onset of symptoms.
CESAR Casiano made aware, and stroke alert promptly called for further bedside evaluation.
--- NOTE | 2025-07-03 15:07 | CON.NEURO ---
Neuro Assessment/Plan
Assessment
Acute onset left arm and leg dysfunction with examination that is more consistent with functional examination than with acute ischemic stroke. Of note is that the patient refused testing which would corroborate the presence or absence of stroke due
to concerns regarding contrast dye allergy. Although the patient was informed that the contrast dye allergy pretreatment would be more than adequate for preventing a significant allergic reaction, the patient still declined undergoing testing.
Risks and benefits were carefully reviewed with the patient and she acknowledged that she did not want to receive appropriate urgent stroke testing.
Differential diagnosis for this patient includes sickle cell crisis, acute ischemic stroke, and functional neurological disorder
Plan
As there is currently lack of clarity regarding the patient's diagnosis, it would be dangerous to provide the patient with tenecteplase
Would check MRI of brain to determine if the patient is experiencing acute ischemic stroke.
Provide prochlorperazine for headache control
Consider psychiatric consultation
Will follow
Consultation
Order
Date of Consultation: 07/03/25
Requesting Provider: Hospitalist
Reason for Consult: Stroke alert
Subjective/Objective
Subjective Data
Date of Service: July 03, 2025
Right handed
Patient is a 40-year-old who presented to this hospital 1 day ago with new onset chest pain. Subsequently, patient was in her usual state of health when she had sudden onset of headache, left arm and left leg weakness. Stroke alert was initiated.
Patient is indicating that she has had prior symptoms due to stroke [place] or 8 years ago. Those records are unavailable at this time. She is not aware of factors which are improving or worsening the situation.
She suggests that she had had a stroke involving the right hemisphere in the past which produced the similar symptoms.
Of note is that the patient's headache is described as frontal and top of head as well as severe in nature. She is not experiencing phonophobia but is experiencing photophobia and a sense of nausea.
Objective Data
Vital Signs
Temp Pulse Resp BP Pulse Ox
36.8 C 105 18 151/95 100
07/03/25 11:00 07/03/25 11:00 07/03/25 11:00 07/03/25 11:00 07/03/25 11:00
Sodium 132 mmol/L (135-145) L 07/02/25 16:11
Potassium 3.9 mmol/L (3.5-5.1) 07/02/25 16:11
BUN 11 mg/dl (7-17) 07/02/25 16:11
Glucose 206 mg/dl (70-99) H 07/02/25 16:11
Calcium 8.8 mg/dl (8.4-10.2) 07/02/25 16:11
Patient Allergies
NSAIDS (Non-Steroidal Anti-Inflamma Allergy (Verified 07/02/25 14:38)
Unknown
Iv contrast Allergy (Uncoded 07/02/25 14:38)
Unknown
CVA Assessment
Onset of Stroke Symptoms
Onset of symptoms known: Yes
Date of onset of symptoms: 07/03/25
Time of onset of symptoms: 14:55
Time pt last seen normal is known: Yes
Date last time pt seen normal: 07/03/25
Time last time pt seen normal: 15:05
NIH Stroke Score
Level of Consciousness: 0 - Alert
LOC Questions: 0-Answers both correctly
LOC Commands: 0-Performs both correctly
Best Horizontal Gaze: 0-Normal
Visual Akbar: 0=Normal, no visual loss
Facial Palsy: 0=Normal, symmetrical
Motor - Right Arm: 0=No drift 10 seconds
Motor - Left Arm: 1=Drift < 10 seconds
Motor - Right Le-No drift 5 seconds
Motor - Left Le-Partial vs. gravity
Limb Ataxia: 0-Absent
Sensation: 0-Normal
Best Language: 0-No aphasia
Dysarthria: 0-Normal
Extinction and Inattention: 0-No abnormality
NIH Total Score:: 3
Tenecteplase Contraindications
Inclusion and Exclusion criteria reviewed: Yes
Review of Systems
-
History Source: Patient
All other systems: Reviewed and negative
EENT: Negative Swallowing Difficulty
Respiratory: Negative Trouble Breathing
Cardiac: Negative Chest Pain
Abdomen/GI: Negative Incontinence of Stool
Genitourinary: Negative Incontinence
Musculoskeletal: Negative Back Pain or Neck Pain
Neuro: Headache; Negative Dizzy
Physical Exam
-
General: No Apparent Distress and Appears Stated Age
Eyes: OU Absent Papilledema, Round OU, [place] Conjunctivae and No Ptosis
HEENT: Anicteric and Moist Mucous Membranes
Neck: Full Range of Motion
Respiratory: No Dyspnea
Cardiac: No JVD
GI: Non-distended
Skin: Unremarkable
Extremities: No Clubbing, No Cyanosis and No Edema
Psych: Negative Intact Judgement/Insight (Patient declining testing)
Extended Neurological Exam
Mood & Affect: Mood Unremarkable and Affect Unremarkable
Attention Span & Concentration: Awake, Alert, Interactive and No Difficulty with 2 Step Request
Memory: Unremarkable
Tremor: Hand Tremor Absent and Head Tremor Absent
Speech: Quality Unremarkable and Quantity Unremarkable
Cranial Nerve II: Left Eye: Pupillary Reactivity Unremarkable, Pupillary Size Unremarkable and Visual Akbar Intact
Cranial Nerve II: Right Eye: Pupillary Reactivity Unremarkable, Pupillary Size Unremarkable and Visual Akbar Intact
Cranial Nerves III, IV, : Extraocular Movement: Extraocular Movement Full in all Directions
Cranial Nerve VII: Facial Symmetry: Normal Facial Symmetry
Cranial Nerve VIII: Hearing: Unremarkable Hearing to Normal Conversational Volume
Cranial Nerves IX, X: Palate Movement: Palate Elevation Symmetric
Cranial Nerve XI: Shoulder Shrug: Unremarkable
Cranial Nerve XII: Tongue Protusion: Midline
Muscle Strength, Overall: Other (Patient presses left lower extremity into bed when lifting right lower extremity, firmly)
Muscle Bulk & Tone: Bulk Unremarkable and Tone Unremarkable
Deep Tendon Reflexes: Unremarkable Throughout
Touch Sensation: Unremarkable
Coordination: [id number] Testing Unremarkable (On the right, unable to check on the left)
Babinski Sign: Absent Bilaterally
Gait & Station: Unable to Assess
Data Reviewed
-
CT Head: Image Reviewed
Medications
-
Active Medications
Generic Name Dose Route Start Last Admin
Trade Name Freq PRN Reason Stop Dose Admin
Acetaminophen 650 mg 07/03/25 00:00
Acetaminophen 325 Mg Tablet PO 07/31/25 00:00
Q4HPRN PRN
mild pain/DUDLEY/temp> 100.4F
Albuterol/Ipratropium 3 ml 07/02/25 22:00
Ipratropium 0.5/Albuterol 3 Mg (3 Ml Ampul) INH
R Q4HPRN PRN
shortness of breath
Protocol
Bictegravir/Emtricitabine/Tenofovir 1 tablet 07/04/25 08:00
Biktarvy (Bictegravir/Emtricitabine/Tenofovir) Tablet PO 08/01/25 07:59
DAILY LENARD
Bisacodyl 10 mg 07/02/25 22:00
Bisacodyl 10 Mg Rectal Suppository RECTAL 07/30/25 21:59
[id number] PRN
constipation
Ceftriaxone Sodium 1,000 mg 07/03/25 18:00
Ceftriaxone 1000 Mg / 10 Ml Vial IV
Q24H LENARD
Diphenhydramine HCl 25 mg 07/03/25 02:00 07/03/25 14:35
Diphenhydramine 50 Mg/Ml 1 Ml Vial IV 07/31/25 01:59 25 mg
Q6HPRN PRN Administration
itching
Folic Acid 5 mg 07/04/25 08:00
Folic Acid 1 Mg Tablet PO 08/01/25 07:59
DAILY LENARD
Hydromorphone HCl 1 mg 07/03/25 12:03
Hydromorphone 1 Mg/Ml Carpuject IV 07/17/25 12:02
Q6HPRN PRN
severe pain
Hydroxyurea 500 mg 07/03/25 20:00
Hydroxyurea 500 Mg Capsule PO 07/31/25 19:59
BID LENARD
Sodium Chloride 1,000 mls @ 125 mls/hr 07/02/25 22:00 07/03/25 14:35
Nss IV 1,000 mls
.Q8H LENARD Administration
Azithromycin 1,000 mg/ Sodium 500 mls @ 500 mls/hr 07/03/25 18:00
Chloride IV
Q24H LENARD
Ondansetron HCl 4 mg 07/02/25 22:00
Ondansetron 4 Mg/2 Ml Vial IV 07/30/25 21:59
Q6HPRN PRN
nausea and vomiting
Oxycodone HCl 15 mg 07/03/25 08:00 07/03/25 08:20
Oxycontin 15 Mg Controlled Release Tablet PO 07/17/25 07:59 15 mg
Q12 LENARD Administration
Oxycodone HCl 5 mg 07/03/25 12:06
Oxycodone 5 Mg Regular Release Tablet PO 07/17/25 12:05
Q4HPRN PRN
moderate pain
Polyethylene Glycol 17 grams 07/02/25 22:00
Polyethylene Glycol Powder 17 Grams Packet PO 07/30/25 21:59
DAILYPRN PRN
constipation
Senna/Docusate Sodium 1 tablet 07/02/25 22:00
Docusate W/Senna (Soni-Colace) Tablet PO 07/30/25 21:59
BIDPRN PRN
constipation
Sodium Chloride 0 flush 07/02/25 23:00
Sodium Chloride 0.9% (Flush) Syringe IV 07/30/25 22:59
PER PROTOCOL LENARD
Spironolactone 100 mg 07/03/25 16:00
Spironolactone 50 Mg Tablet PO 07/31/25 15:59
BID@0800,1600 LENARD
Home Medications
�Medication �Instructions �Recorded
bictegravir 50 mg-emtricitabine 1 tab PO DAILY ANTIVIRAL 07/03/25
200 mg-tenofovir alafenam 25 mg
tablet (Biktarvy)
folic acid 1 mg tablet 5 mg PO DAILY Supplement 07/03/25
hydroxyurea 500 mg capsule 500 mg PO BID CHEMO 07/03/25
oxycodone 20 mg tablet 20 mg PO Q4H PRN pain 07/03/25
oxycodone 30 mg tablet,extended 30 mg PO BID Pain 07/03/25
release,12 hr
spironolactone 100 mg tablet 100 mg PO BID Fluid 07/03/25
(Aldactone) Retention/Swelling
Past History
Past History
ED Past Medical History: CVA, Other (DVT, PE) and Other (Sickle cell crisis)
ED Past Surgical History: Appendectomy and Other (Perirectal abscess. Breast implants. [place] teeth)
Social History
Tobacco: Non-smoker
Alcohol: Occasional
Drug: None
Living: with family
Family History
Family History: Other (Reviewed and noncontributory)
Medications
-
Medications:
Generic Name Dose Route Start Last Admin
Trade Name Freq PRN Reason Stop Dose Admin
Acetaminophen 650 mg 07/03/25 00:00
Acetaminophen 325 Mg Tablet PO 07/31/25 00:00
Q4HPRN PRN
mild pain/DUDLEY/temp> 100.4F
Albuterol/Ipratropium 3 ml 07/02/25 22:00
Ipratropium 0.5/Albuterol 3 Mg (3 Ml Ampul) INH
R Q4HPRN PRN
shortness of breath
Protocol
Bictegravir/Emtricitabine/Tenofovir 1 tablet 07/04/25 08:00
Biktarvy (Bictegravir/Emtricitabine/Tenofovir) Tablet PO 08/01/25 07:59
DAILY LENARD
Bisacodyl 10 mg 07/02/25 22:00
Bisacodyl 10 Mg Rectal Suppository RECTAL 07/30/25 21:59
[id number] PRN
constipation
Ceftriaxone Sodium 1,000 mg 07/03/25 18:00
Ceftriaxone 1000 Mg / 10 Ml Vial IV
Q24H LENARD
Diphenhydramine HCl 25 mg 07/03/25 02:00 07/03/25 14:35
Diphenhydramine 50 Mg/Ml 1 Ml Vial IV 07/31/25 01:59 25 mg
Q6HPRN PRN Administration
itching
Folic Acid 5 mg 07/04/25 08:00
Folic Acid 1 Mg Tablet PO 08/01/25 07:59
DAILY LENARD
Hydromorphone HCl 1 mg 07/03/25 12:03
Hydromorphone 1 Mg/Ml Carpuject IV 07/17/25 12:02
Q6HPRN PRN
severe pain
Hydroxyurea 500 mg 07/03/25 20:00
Hydroxyurea 500 Mg Capsule PO 07/31/25 19:59
BID LENARD
Sodium Chloride 1,000 mls @ 125 mls/hr 07/02/25 22:00 07/03/25 14:35
Nss IV 1,000 mls
.Q8H LENARD Administration
Azithromycin 1,000 mg/ Sodium 500 mls @ 500 mls/hr 07/03/25 18:00
Chloride IV
Q24H LENARD
Ondansetron HCl 4 mg 07/02/25 22:00
Ondansetron 4 Mg/2 Ml Vial IV 07/30/25 21:59
Q6HPRN PRN
nausea and vomiting
Oxycodone HCl 15 mg 07/03/25 08:00 07/03/25 08:20
Oxycontin 15 Mg Controlled Release Tablet PO 07/17/25 07:59 15 mg
Q12 LENARD Administration
Oxycodone HCl 5 mg 07/03/25 12:06
Oxycodone 5 Mg Regular Release Tablet PO 07/17/25 12:05
Q4HPRN PRN
moderate pain
Polyethylene Glycol 17 grams 07/02/25 22:00
Polyethylene Glycol Powder 17 Grams Packet PO 07/30/25 21:59
DAILYPRN PRN
constipation
Senna/Docusate Sodium 1 tablet 07/02/25 22:00
Docusate W/Senna (Soni-Colace) Tablet PO 07/30/25 21:59
BIDPRN PRN
constipation
Sodium Chloride 0 flush 07/02/25 23:00
Sodium Chloride 0.9% (Flush) Syringe IV 07/30/25 22:59
PER PROTOCOL LENARD
Spironolactone 100 mg 07/03/25 16:00
Spironolactone 50 Mg Tablet PO 07/31/25 15:59
BID@0800,1600 [facility]
[2025-07-03 15:08] LABS: Glucose - Point of Care 162 mg/dl (70-99)
--- NOTE | 2025-07-03 15:45 | PTCARENOTE ---
07/03- Patient has new complaints of chest pain and SOB upon returning from CT scan. Attempted to get EKG on patient as per Neurology. Patient refusing EKG stating, 'no. I want to go piss then get the fuck outta here. You all don't care about me
or know how to treat me. The neurologist just said he doesn't know how to treat me.' Advised patient the neurologist will know how to treat her based on her diagnostics, but he can't treat without more specific information. Also advised we should
get a 12lead EKG with these new symptoms of chest pain and SOB. She then ripped off her telemetry and threw the monitor with the wires at the wall which then fell into the trashcan. Then she began ripping off her EKG stickers and attempted to jump
out of bed when it was still positioned in a high position for the EKG despite this RN attempting to de-escalate. Attempted verbally de-escalating, and patient raised her voice stating, 'fuck you all. You're not fucking helping me. I'm not staying
here. Don't bother with any more meds. I don't want anything except the stuff that rubina doctor discontinued on me.' Called Code Purple.
[2025-07-03 16:00] VITALS: BP 172/107
--- NOTE | 2025-07-03 16:00 | PTCARENOTE ---
07/03- Patient refusing NIH at this time.
[2025-07-03] MEDS: ALDACTONE PO (16:13)
--- NOTE | 2025-07-03 16:24 | W.PN.UPDATE ---
Update Note
Progress Note Update
Stroke Alert called 305 pm for vision and L sided weakness
Neurology evaluated, CT head negative. TNK not advised due to lack of clarity of symptoms. MRI brain ordered.
30 minutes later had a Code purple
I spoke to patient at length. Notified patient that CVA alert negative. Also discussed lack of true evidence of sickle crisis (low normal LDH, low normal retic count) and rationale for de-escalation of pain meds. Also found to have bacteremia
(Stenotrophamonas and Enterococcus) which would require removal of CUSTOMER LOYALTY REPRESENTATIVE tunnelled PICC by IR and initiation of IV Abx along with ID consultation.
Patient has signed AMA form. Risks include but not limited to , sepsis, LA, renal failure, stroke, other organ dysfunction.
If patient decides to stay, will consult ID and IR.
High risk situation if patient leaves AMA and patient is refusing removal of prior to arrival PICC line in an AMA scenario - windchill administrator second hand Triny Funez notified.
--- NOTE | 2025-07-03 16:45 | PTCARENOTE ---
Responded to patient room for code purple for patient getting agitated and threw her Tele box. Stated she is upset and wants to leave. Only stating we can't make her stay and that we are not doing what she is asking. She is not being clear of what
she wants but insisting on leaving. Dr. Holm notified.
--- NOTE | 2025-07-03 16:47 | PTCARENOTE ---
Accompanied Dr. Holm in patient room as he explained risks of leaving AMA including that may occur from bacteremia. Despite risks being explained and proposed plan of care explained (to remove current PICC) and administer Antibiotics and
that pt will need to stay about 3 days or so, patient still insists on leaving. Refused to allow family to be called. Due to life/ situation Dr Holm made attempts to call call or contact centre coach to no avail. Upon checking back with patient, she now
wants to think about her decision.
--- NOTE | 2025-07-03 17:48 | PTCARENOTE ---
07/03- After a couple of hours to let patient settle down, this RN re-entered room and asked patient how she is doing. Patient doesn't look at this RN and answers, 'fine.' When asked about resuming meds or if she'd like her evening meds now, she
stated, 'I'm still thinking about it. Leave and let me think.'
--- NOTE | 2025-07-03 18:33 | VATNOTE ---
07/03 - cathflo unsuccessful d/t urgent need for CT SCAN r/t stroke alert called at time of intial administration. Shortly after stroke alert, patient became aggressive and uncooperative, code rustam was called. Pt refusing all care following this
incident. Cathflo unable to be administerred again for second attempt due to patient's uncooperative and refusing behaviors. MD BANUELOS made aware. Also discussed positive blood culture notification to MD Banuelos, he is aware and stated will work with
ID for plan moving forward. At this time, PICC line still in place without blood return to both lumens. Awaiting further plan of care with hospitalist and ID.
[2025-07-03] MEDS: OXYCONTIN (CONTROLLED RELEASE) PO (21:04)
[2025-07-03] MEDS: HYDREA PO (21:04)
[2025-07-03] MEDS: NSS IV (21:31)
--- NOTE | 2025-07-03 21:34 | PTCARENOTE ---
Attempted to get 2100 labs on patient and she said 'later'. Primary RN made aware.
--- NOTE | 2025-07-03 22:29 | PTCARENOTE ---
Pt is refusing all evening medications, nurse monitoring, lab draws and vitals. When asked if she wants her vitals and labs drawn, pt replies 'Later'. [facility] [employer] [employer] Allison notified, no further orders.
[2025-07-03 23:00] VITALS: BP 138/61
[2025-07-03] MEDS: DILAUDID 1 MG IV (23:22)
--- NOTE | 2025-07-03 23:30 | PTCARENOTE ---
At 2330, pt was shivering and requesting multiple blankets as well as the thermostat to be increased; the room was already set to 80 degrees. Pt had been refusing her vitals to be taken all shift but is now asking for her temperature to be checked.
Temperature at this time was 102.8F, BP 138/61, HR 160. Pt also reported pain in her chest and headache, stating 'I feel like I'm dying'. Pt also reports feeling nauseous. PRN IV Dilaudid 1mg and PRN IV Zofran provided to pt. LOYD Cooper notified of
fever and pain. Orders placed by PLANT SAFETY ENGINEER for NSS 1L bolus, IV Ofirmev, IV Vancomycin and IV cefepime. Pt had been refusing all medications but is now agreeable, as long as 'it helps with my pain'. This RN explained to pt that the IV Ofirmev should help
with her pain and that the rest of the medications ordered will help treat her infection. Pt is agreeable to receiving all medications ordered by LOYD Cooper.
Around 0035, pt reports still experiencing 10/10 pain in her chest and head. BP at this time was 116/69, HR 135 and temperature 102.9F. LOYD Cooper ordered 1x IV Dilaudid 1mg and 1x IV Benadryl 25mg, which this RN provided to pt.
Temperature and HR rechecked at 0130 was 102.5F, HR 129. Pt accepted 1L NSS bolus but is refusing further IVFs tonight. Pt is also still refusing telemetry and NIH/neuro checks.
Pt now asleep in bed. Will continue to monitor for further fever and pain.
[2025-07-03] MEDS: ZOFRAN 4 MG IV (23:31)
[2025-07-03] MEDS: OFIRMEV 100 IV (23:52)
[2025-07-04] VITALS (32 sets, daily range): BP systolic 71–164; BP diastolic 42–100
[2025-07-04] MEDS: STERILE WATER FOR INJECTION 10 ML IV ×2 (00:13→10:19)
[2025-07-04] MEDS: VANCOCIN 540 MG IV (00:13)
[2025-07-04] MEDS: MAXIPIME 1000 MG IV ×2 (00:14→10:25)
[2025-07-04] MEDS: DILAUDID 1 MG IV ×7 (01:34→23:50)
[2025-07-04] MEDS: BENADRYL 25 MG IV ×4 (01:45→16:51)
[2025-07-04] MEDS: ROXICODONE 5 MG PO (04:02)
[2025-07-04] MEDS: NSS 1000 IV ×4 (04:02→23:50)
--- NOTE | 2025-07-04 04:30 | PTCARENOTE ---
Addendum entered by Mihir Velasco RN 07/04/25 07:37:
Pt is now agreeable to receive continuous IVFs. IV NSS infusing at 125 mL/hr per order.
Original Note:
Pt's temp rechecked after IV Tylenol and IV NSS bolus was 103.9F at 0430. LOYD Cooper notified and orders placed for another IV NSS bolus and IV Ofirmev stat. Pt's temp rechecked at 0630 was 102.8F, BP 114/63 and HR 121. Pt still reports severe
headache, back and chest pain despite IV dilaudid administration overnight. LOYD Coopre notified and order placed for EKG with chest pain and completed this AM. EKG reading sinus tachycardia. Will pass along to dayshift RN.
[2025-07-04] MEDS: OFIRMEV 100 IV ×2 (05:25→08:44)
[2025-07-04] MEDS: ZOFRAN 4 MG IV (05:32)
[2025-07-04] MEDS: OXYCONTIN (CONTROLLED RELEASE) 15 MG PO ×2 (07:38→20:02)
[2025-07-04 07:55] LABS: Glucose - Point of Care 173 mg/dl (70-99)
[2025-07-04] MEDS: DILAUDID 0.5 MG IV (08:43)
[2025-07-04 08:49] LABS: Hematocrit 19.8 % (37.0-47.0); Hemoglobin 6.4 g/dL (12.0-16.0); INR 1.17; Mean Corp Hgb Conc. 32.3 g/dL (33.0-37.0); Mean Corpuscular Volume 82.2 fL (81.0-99.0); Nucleated Red Blood Cells % 0 %; PT 15.3 Sec (11.4-14.6); Red Cell Dist. Width 16.3 % (11.5-14.5)
[2025-07-04 08:50] LABS: APTT 30.5 Sec (23.4-35.0)
[2025-07-04 08:58] LABS: ALT (SGPT) 21 U/L (0-35); AST (SGOT) 43 U/L (14-36); Albumin 1.7 g/dl (3.5-5.0); Alkaline Phosphatase 52 U/L (38-126); Blood Urea Nitrogen 5 mg/dl (7-17); Calcium 5.3 mg/dl (8.4-10.2); Carbon Dioxide 19 mmol/L (22-30); Chloride 118 mmol/L (98-107); Estimated Creatinine Clearance > 125 ml/min; Glucose 108 mg/dl (70-99); Iron < 20 ug/dl (37-170); Potassium 2.2 mmol/L (3.5-5.1); Sodium 137 mmol/L (135-145); Total Protein 3.9 g/dl (6.3-8.2); eGFR > 60.00
[2025-07-04 09:02] LABS: Reticulocyte Count 2.0 % (0.4-2.8)
[2025-07-04 09:03] LABS: Troponin I 0.015 ng/ml
[2025-07-04 09:05] LABS: Total Iron Binding Capacity 210 ug/dl (265-497)
[2025-07-04 09:08] LABS: Procalcitonin 0.15 ng/ml (0.0-0.25)
[2025-07-04 09:22] LABS: Glucose - Point of Care 168 mg/dl (70-99)
[2025-07-04 09:33] LABS: Ferritin 14.8 ng/ml (6.24-137)
--- NOTE | 2025-07-04 09:34 | W.PN.PUL.V3 ---
Today's Communication / Plan
-
Transferred to ICU
Transfuse
Check cultures
Broad-spectrum antibiotics
Infectious disease consultation
Quantify hemoptysis
Oxygen and hydration as well as hydroxyurea
Analgesia per primary service
Assessment
-
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
CT chest showed ground glass opacities suggestive of infectious pneumonitis. Consulted on 07/03/[address]: Multiple centrilobular ground glass opacities left upper lobe, right middle lobe and left lower lobe.
Suspect infectious pneumonitis
Doubt diffuse alveolar hemorrhage
Community-acquired pneumonia
Hemoptysis-mild
Cough/chest pain-likely secondary to above.
History of sickle cell disease: Doubt acute chest syndrome.
Unclear baseline hemoglobin-she is originally from [place]
Reticulocyte count 3%
LDH 293
Normal LFTs
CVA alert 07/03/2025
Anemia from acute blood loss-doubt from hemoptysis-hemoglobin 6.4
Thrombocytopenia-platelet 114
Bacteremia-Enterococcus in stenotrophomonas
Hypocalcemia-calcium 5.3
Hypomagnesemia-magnesium 0.9
Hypokalemia-potassium 2.2
Leukopenia
Metabolic acidosis
Conditions present prior admission:
HIV
Sickle cell anemia
Chronic pain on narcotics
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
Plan
Significant deterioration with significant anemia, severe hypokalemia, hypocalcemia, hypomagnesemia requiring transfusion and transfer to ICU
Respiratory status relatively stable
Continue supplemental oxygen
Chest x-ray-NAD
Nebulizers if needed-currently not bronchospastic
Aspiration precautions
Quantify hemoptysis-has not had significant hemoptysis
CT chest with PE protocol 07/04/2025-pending
Monitor hemoglobin
Transfuse as needed
Do not believe anemia due to acute blood loss is from pulmonary etiology
Look for gastrointestinal losses
PPI
Hematology following
Monitor for acute chest syndrome-currently not suspected but pt complaints of pain all over-- asking for more pain meds.
Continue hydration
Check cultures
Empiric ceftriaxone and azithromycin-changed to ampicillin and levofloxacin
Infectious disease consultation
Has had PICC line for greater than 4 weeks-consider culture and removal
CVA alert 07/03/2025
Ne[address] following
CT head negative
Brain MRI pending
DVT [id number]-hwnkjtr has been refusing
GI prophylaxis-on pantoprazole
Nutrition
Early mobilization
She is from [place] and visiting relatives for the last 2 weeks
History of DVT treated with Lovenox that she 'hates Lovenox' that she stopped four months ago and states that she has been on anticoagulation most of her life
Critical care statement: A total of 50 minutes of critical care time was provided for this patient today. This includes management of unstable vital signs, evaluation of the patient at bedside, reviewing the patient�s pertinent medical records
including radiographs, microbiology, laboratory evaluations, and��discussion with primary team, consultants, pharmacy, nutrition, physical therapy, case management, charge nurse, critical care nursing, and respiratory therapy.
Data
Chest x-ray 07/04/2025-NAD
Lower extremity ultrasound 07/03/2025-no evidence for DVT
CT head 07/03/2025-no acute intracranial abnormalities
Subjective Data
-
Date of Service:
Date of Service: July 04, 2025
Chief Complaint: Pulmonary Follow Up and Dyspnea Follow Up
Subjective:
Complains of some nausea, significant anemia, pain all over, no hemoptysis, continued temperatures, has PICC line
Review of Systems
General: Other (Per HPI)
Objective Data
Data Reviewed
Vital Signs / I&O:
Vital Signs
Temp Pulse Resp BP Pulse Ox
102.8 F H 121 20 114/63 99
07/04/25 06:37 07/04/25 06:37 07/03/25 23:00 07/04/25 06:37 07/03/25 23:00
Intake and Output
07/03/25 07/04/25 07/05/25
06:59 06:59 06:59
Intake Total 480 / 480 720 / 720 3700 / 3700
Output Total 300 / 300 900 / 900
Balance 480 / 480 420 / 420 2800 / 2800
SaO2: 99
Physical Exam
General: Respiratory Distress (n) and Comfortable
HEENT: Normocephalic, Anicteric and Moist Mucous Membranes
Cardiovascular: Regular Rhythm
Respiratory: Wheeze (n), Crackles (n), Rhonchi (n), Non-Labored Respirations, Accessory Resp Muscle Use (n) and Stridor
GI: Soft and Distended
Neurology: Awake, Alert and No Motor Deficits
Skin: Warm, Good Color, Cyanosis (n), Jaundice (n) and Rash (n)
Labs/Micro/Reports
Lab Data
07/04/25 08:05
07/04/25 08:05
Laboratory Results
07/04/25
08:05
PT 15.3 H
INR 1.17
APTT 30.5
Microbiology
07/02/25 21:32 Blood/Venous Blood Culture - Preliminary
Enterococcus faecalis
Stenotrophomonas maltophilia
07/02/25 21:32 Blood/Venous Gram Stain - Preliminary
07/02/25 21:32 Blood/Venous Blood Culture - Preliminary
Positive culture in progress
07/02/25 21:32 Blood/Venous Gram Stain - Preliminary
07/02/25 16:11 Nasal Swab Influenza Types A & B (DAXA) - Final
Negative for Influenza A & B, NAAT
Negative results must be combined with clinical observations
and patient history.
Nucleic Acid Amplification test (NAAT)performed on the
[employer] platform.
--- NOTE | 2025-07-04 09:37 | PTCARENOTE ---
Upon receiving pt from previous shift, pt complaining of chest pain, sob, feelings of impending doom. HEALTH SERVICES COORDINATOR called. Pt's Blood sugar 173, temp 102.8, rechecked 102.1, BP 104/63, heart rate 126, EKG and tele running sinus tachy. 95% on ra, placed on
2L's NC. Chest xray ordered, blood work, pain medication ofirmev. Provided pain medication, ofirmew. Pt resting after rapid. Critical lab values. Potassium 2.2, Hgb 6.4, HCT 19.8. Blood ordered. Pt called nurse, complaining of nausea, vomited 600
ml's of blood and clots. Pt feeling dizzy, blood pressure 104/72 heart rate 132. Feeling of impending doom. Chest pain, lightheaded. Says ' I'm going to pass out, I'm going to ' HEALTH SERVICES COORDINATOR called. Pt transferred to ICU
--- NOTE | 2025-07-04 09:37 | W.PN.HOSP.TC ---
Addendum entered and electronically signed by Crys Holm MD 07/04/25 10:52:
Severe or morbid obesity
Original Note:
Today's Communication/Plan
-
see outlined plan below
Assessment / Plan
Assessment / Plan
Assessment:
Chest pain
Hemoptysis
Community acquired pneumonia
- CT: MULTIPLE CENTRILOBULAR GROUND-GLASS OPACITIES in the LEFT UPPER LOBE and single ground-glass opacities in the right middle and left lower lobe. Diagnostic possibilities are (1) acute pulmonary hemorrhage (probably most likely given the history
of hemoptysis) or (2) pneumonia.
- procal negative. Remains on Cefepime, Azithromycin, day 3. Follow cultures
- as needed O2 therapy
- Pulmonary/ICU following
- obtain CT-PE study; pre-medication treatment ordered. DVT study negative
Acute blood loss anemia (hemoptysis)
also sickle cell
- 2 units PRBC ordered; patient consulted
CVA alert 07/03
- CT head negative
- MRI recommended by Neurology; pending
- follow Neuro recs
Enterococcus and Stenotrophomonas bacteremia
hx of indwelling PICC line
- repeat bcx x 2 from PICC and peripherally
- empiric Vanco/Cefepime
- ID consult
- IR consult if PICC to be removed
hx of sickle cell disease
- LDH 293 (normal up to 245)
- retic 3% now 2%
- bilirubin remains normal
- haptoglobin pending
- Hb S pending
- unlikely acute sickle crisis
- continue IVF
- continue Hydrea/Folic acid
- pain control - On OxyContin 10mg q12h; plus oxycodone 5mg q4h prn. breakthrough Dilaudid. concurrent bowel regimen.
- no PDMP verification possible as patient states she is visiting from [place]
- states that she is cared for at [facility] - called, only open weekends (11 AM to 1 PM)
- check anemia indices
- LE US negative
- CT was not a PE study; will perform it today
Hypocalcemia
Hypokalemia
- IV riders
- check Mag level urgently
hx of HIV
- on Biktarvy
DVT ppx: Lovenox
Code: Full
Total Critical Care Time 45 minutes. I was immediately available to the patient and staff. I personally examined, reviewed labs, diagnostic images/reports, interpretations, treatment plans, discussed patient care with other providers and family
or caregivers (if patient is unable to make decisions), entered orders as appropriate and documented the medical record.
Anticipated Discharge: > 48 hours
Subjective/Interval History
-
Date of Service: July 04, 2025
Fevers overnight, with development of bacteremia - started on empiric IV abx.
this AM with [employer] for chest pain, dizziness
on 2L NC
EKG with sinus tach
portable CXR negative
Hb 6.4 - 2 units ordered; patient consented
patient requesting Dilaudid
floor RN reported some coughed up blood
transferred to ICU for closer monitoring
Objective Data
-
Labs:
Laboratory Results
07/03/25 07/04/25 07/04/25
21:00 06:00 08:05
WBC Cancelled Cancelled 3.7 L
Hgb Cancelled Cancelled 6.4 L* D
Hct Cancelled Cancelled 19.8 L*
Plt Count Cancelled Cancelled Pending
PT 15.3 H
INR 1.17
APTT 30.5
Sodium Cancelled Cancelled 137
Potassium Cancelled Cancelled 2.2 L* D
Chloride Cancelled Cancelled 118 H
Carbon Dioxide Cancelled Cancelled 19 L
BUN Cancelled Cancelled 5 L
Creatinine Cancelled Cancelled 0.7
Glucose Cancelled Cancelled 108 H
Calcium Cancelled Cancelled 5.3 L* D
Total Bilirubin 0.5
AST 43 H
ALT 21
Alkaline Phosphatase 52
Vital Signs:
Vital Signs
Temp Pulse Resp BP Pulse Ox
102.8 F H 121 20 114/63 99
07/04/25 06:37 07/04/25 06:37 07/03/25 23:00 07/04/25 06:37 07/04/25 09:34
I&O
07/03/25 07/04/25 07/05/25
06:59 06:59 06:59
Intake Total 480 / 480 720 / 720 3700 / 3700
Output Total 300 / 300 900 / 900
Balance 480 / 480 420 / 420 2800 / 2800
Physical Exam
-
General: No Apparent Distress
HEENT: Normocephalic and Atraumatic
Respiratory: Clear to Auscultation
Cardiac: Regular Rhythm, S1/S2 and Tachycardic
GI: Soft and Nontender
Genito-urinary: No Costovertebral Tender
Neuro: AO x 3
Psych: Calm
Data Reviewed
-
Critical Care Time (in minutes): 45
Labs: Labs Reviewed by me
--- NOTE | 2025-07-04 09:39 | PHA.VAN.IN ---
Assessment
- Assessment
Renal Function: Unknown baseline
Renal Function may be Overestimated due to: Obesity. BMI = 48
Maximum Temperature: 103.9
Minimum Temperature: 98.2
Concomitant Antimicrobials: Cefepime, Azithromycin
AUC Dosing Plan
- Dosing Variables
Dosing Weight (kg): 165
Dosing CrCl (ml/min): 125
Vd coefficient (L/kg): 0.5
- Empiric Dosing
Initial / Loading Dose: Vanc 2000mg given 07/04 at 0013
Maintenance Regimen: Vanc 1250mg IV Q8H. Dose now, then again at 2200.
Estimated AUC (mcg*h/mL): 455
Estimated Peak (mcg*h/mL): 26.2
Estimated Trough (mcg/ml): 13
Estimated Half Life (H): 6.4
- Monitoring
No levels ordered at this time: Will order Peak after 07/05 2200 dose, trough prior to 07/06 0600 dose
Pharmacokinetics Vancomycin I
- -
Patient Age: 40
Patient Sex: Female (Male transitioning to female)
Vancomycin Day #: 1
Indication: Bacteremia
Requesting Provider: Asia Buchanan
Height / Weight:
Height 6 ft 1 in
Actual Weight 165 kg
IBW in k.4kg
Adjusted BW in k.2kg
Pertinent Past Medical History: Male to Female transition, Sickle Cell, DVT, PE, BMI 48
- Vital Signs / Lab Results
Temp Pulse Resp BP Pulse Ox
102.8 F H 121 20 114/63 99
07/04/25 06:37 07/04/25 06:37 07/03/25 23:00 07/04/25 06:37 07/04/25 09:34
Lab Results - Hematology
07/02/25 07/03/25 07/04/25
16:11 21:00 06:00
WBC 5.4 Cancelled Cancelled
07/04/25
08:05
WBC 3.7 L
Lab Results - Chemistry
07/02/25 07/03/25 07/04/25
16:11 21:00 06:00
BUN 11 Cancelled Cancelled
Creatinine 0.9 Cancelled Cancelled
Estimated Creat Clear Cancelled Cancelled
Albumin 3.7
07/04/25
08:05
BUN 5 L
Creatinine 0.7
Estimated Creat Clear > 125
Albumin 1.7 L D
07/02/25 07/02/25
16:11 19:15
Lactic Acid 1.1 Cancelled
Lab Results - Urine
07/02/25
17:03
Urine Nitrite (Reflex) Negative
Leukocyte Esterase Rfl Negative
Urine WBC (Reflex) 0-2
Ur Squamous Epith Cells 6-10
Urine Bacteria (Reflex) Few A
Microbiology Results
07/02/25 21:32 Blood Culture - Preliminary
Blood/Venous Enterococcus faecalis
Stenotrophomonas maltophilia
Gram Stain - Preliminary
07/02/25 21:32 Blood Culture - Preliminary
Blood/Venous Positive culture in progress
Gram Stain - Preliminary
07/02/25 16:11 Influenza Types A & B (DAXA) - Final
Nasal Swab Negative for Influenza A & B, NAAT
Negative results must be combined with clinical observations
and patient history.
Nucleic Acid Amplification test (NAAT)performed on the
[employer] platform.
[2025-07-04 10:04] LABS: Folate 16.4 ng/ml (2.76-20); Vitamin B12 321 pg/ml (239-931)
--- NOTE | 2025-07-04 10:08 | CON.ID ---
Consultation
-
Date/Time Consultation Requested: July 04, 2025 0816
Date/Time Consultation Performed: July 04, 2025 1010
Requesting Provider: Dr. Crys Holm
Performing Provider: Dr. Susan Mena
Reason for Consultation: Bacteremia, has PICC line, sickle cell
Chief Complaint / Past History
Chief Complaint
Crisis from sickle cell
History of Present Illness
40-year-old transgender female with history of HIV on Biktarvy, sickle cell, DVT who presented to the ED July 02 complaining of chest pressure and hemoptysis. He reports she is from [place] and has been in town for the past 2 weeks for his
mother's . About 2 days prior to admission, he developed low-grade fever and cough. He then developed chest pain, sputum streaked with blood, and diffuse body pain acute cardiopulmonary process. Chest CT showed centrilobular ground glass
opacities in the left upper lobe and and right middle lobe possibly from acute pulmonary hemorrhage versus pneumonia. He was started on ceftriaxone and azithromycin. Lab work did not support sickle cell crisis. Yesterday he developed acute left
vision loss and left side weakness. Head CT negative. The admission blood cultures positive for Stenotrophomonas and Enterococcus faecalis. Of note patient has tunneled PICC line for blood draw, fluid, and iron infusion per patient. The most
current PICC line was placed about a month ago in [place]. He reports in the ED the blood cultures were drawn from the PICC line. Patient was about to leave AMA yesterday but decided to stay upon learning of the positive blood cultures. Last
night he then started having fevers up to 103.9. Antibiotics broadened to cefepime and vancomycin as well as continued on azithromycin. This a.m. had [employer]INE[employer] for chest pain, dizziness, hypoxia. Hemoglobin 6.4. Patient coughed up blood. He was
transferred to ICU. Patient reports ill contact at the . He complains of pain everywhere headache, chest, abdomen, arms, legs, hips, back. No diarrhea. No dysuria. Left-sided weakness resolved. He he states HIV diagnosed in 2008. He is
currently under the care of an HIV physician in [place]. He reports HIV well-controlled. He states he is compliant with the Biktarvy.
Past History
Additional Past Medical History:
Transgender female
HIV dx 2008, on Biktarvy
Sickle cell
hx DVT/PE
Chronic pain
Perirectal abscess
Bilateral hip avascular necrosis
Class III obesity BMI 48
Breast implants
Appendectomy
Allergy History:
NSAIDS (Non-Steroidal Anti-Inflamma Allergy (Verified 07/02/25 14:38)
Unknown
Iv contrast Allergy (Uncoded 07/02/25 14:38)
Unknown
Medications Reviewed: Yes
Current Antibiotics:
s/p ceftriaxone in ED
Azithromycin 1000mg IV q24H d2
Cefepime d1
Vancomcin d1
Biktarvy
Social History
Tobacco: Non-Smoker
Alcohol: Occasional
Drug: None
Personal: Partner (male)
Family History
Family History: Not Pertinent
Review of Systems
Review of Systems
General: Fever and Chills; Negative Change in Appetite
Respiratory: Cough and Hemoptysis; Negative Dyspnea
Gasteroenterology: Nausea; Negative Vomiting or Diarrhea
Genital / Urological: Negative Dysuria or Flank Pain
Endocrine: Weakness
Skin / Hair / Nails: Negative Rash
Neurological: Dizziness
All systems: All other systems were reviewed and were negative
Vital Signs
Temp Pulse Resp BP Pulse Ox
100.4 F H 126 22 111/63 99
07/04/25 09:52 07/04/25 07:00 07/04/25 07:00 07/04/25 07:00 07/04/25 09:34
Selected Entries
07/04/25
04:30
Temp max 103.9 F H
Physical Exam
Physical Exam
Constitutional: No Acute Distress and Obese
Head: Other (No sinus tenderness)
Eyes: No Conjunctival Hemorrhage and Sclera Anicteric
Cardiovascular: S1/S2 (Tachycardic)
Pulmonary: Clear; Negative Wheezes or Rales
Gastrointestinal: Soft, Non Tender, Non Distended and Normal Bowel Sounds
Genito-Urinary: Negative Walker
Extremities: Negative Edema
Neurological: AO x 3
Lines: PICC (Right IJ tunneled PICC no erythema)
Lab / Diagnostic Study Results
07/04/25 08:05
Abs Immat Gran (auto) 0.1 10^3/uL (0-0.05) H 07/04/25 08:05
Absolute Neuts (auto) 2.8 10^3/uL (1.4-6.5) 07/04/25 08:05
Absolute Lymphs (auto) 0.5 10^3/uL (1.2-3.4) L 07/04/25 08:05
Absolute Monos (auto) 0.3 10^3/uL (0.1-0.6) 07/04/25 08:05
Absolute Basos (auto) 0.0 10^3/uL (0-0.2) 07/04/25 08:05
Immature Gran % 1.4 % (0-0.5) H 07/04/25 08:05
Neutrophils % 76.9 % (42.2-75.2) H 07/04/25 08:05
Lymphocytes % 13.2 % (20.5-51.1) L 07/04/25 08:05
Monocytes % 8.2 % (1.7-9.3) 07/04/25 08:05
Eosinophils % 0.0 % (0-6) 07/04/25 08:05
Basophils % 0.3 % (0-2) 07/04/25 08:05
PT 15.3 Sec (11.4-14.6) H 07/04/25 08:05
INR 1.17 07/04/25 08:05
Lactic Acid Cancelled 07/02/25 19:15
Procalcitonin 0.15 ng/ml (0.0-0.25) 07/04/25 08:05
Ur Squamous Epith Cells 6-10 /LPF (Few) 07/02/25 17:03
Microbiology Results
Micro:
07/02/25 21:32 Blood Culture - Preliminary
Blood/Venous Enterococcus faecalis
Stenotrophomonas maltophilia
Gram Stain - Preliminary
07/04/25 08:05 Blood Culture - Pending
Blood/Venous
07/02/25 21:32 Blood Culture - Preliminary
Blood/Venous Positive culture in progress
Gram Stain - Preliminary
07/02/25 16:11 Influenza Types A & B (DAXA) - Final
Nasal Swab Negative for Influenza A & B, NAAT
Negative results must be combined with clinical observations
and patient history.
Nucleic Acid Amplification test (NAAT)performed on the
[employer] platform.
07/04/25 CXR: No acute cardiopulmonary process.
07/02/[address]: MULTIPLE CENTRILOBULAR GROUND-GLASS OPACITIES in the LEFT UPPER LOBE and single ground-glass opacities in the right middle and left lower lobe. Diagnostic possibilities are (1) acute pulmonary hemorrhage (probably most likely given
the history of hemoptysis) or (2) pneumonia.
Assessment / Plan
#Polymicrobial CLABSI with Enterococcus faecalis and Stenotrophomonas, present on admission
#Fever
#Hemoptysis - Procalcitonin negative, not consistent with bacterial PNA
#Sickle cell without crisis
#HIV, reportedly well-controlled on Biktarvy
#Transgender female
- Repeat bcx's: 1 set from PICC and 1 set from peripheral
- Agree with DC PICC, cx tip
- DC cefepime/vanco/azithromycin
- Start levofloxacin 750mg po daily and Unasyn 3g IV q6.
- Continue Biktarvy for HIV.
- Trend fever.
Care Review
Plan reviewed with: Nurse and Physician (Dr. Holm)
[2025-07-04] MEDS: MAGNESIUM SULFATE 100 IV (10:22)
[2025-07-04] MEDS: KCL 270 MEQ IV (10:24)
[2025-07-04] MEDS: CALCIUM GLUCONATE 290 MG IV (10:25)
[2025-07-04] MEDS: VANCOCIN 275 MG IV (10:25)
[2025-07-04 10:37] LABS: Platelet Count 114 10^3/uL (130-400)
[2025-07-04 10:43] LABS: Magnesium 0.9 mg/dl (1.6-2.3)
--- NOTE | 2025-07-04 11:00 | PTCARENOTE ---
Received pt s/p second RR @ apprix 1030. Pt. moved self over from floor bed to icu bed; bedrest maintained. Pt. AAOx3, anxious and c/o severe pain throughout whole body. Dr. Holm made aware and prn meds adjusted- see OCT. ST on monitor; c/o
intermittent chest pain; EKG and troponin completed during first RR- negative. SpO2 98% on RA. Auscultated dim breath sounds, poor effort. +BS, abd round/obese. No further episodes of bloody emesis in ICU; intermittent nausea remains. Cont b/b;
urinal w in reach. R CW tunned PICC in place, dressing c/d/i. Case reviewed w Dr. Holm; further orders for electrolyte repletion- see OCT. CBC redrawn and sent to lab- resulted 8.6; relayed to Dr. Holm and Dr. Westbrook; plan remains for 1 unit PRBC.
Pt. instructed on how to report care concerns and call ashleigh w in reach.
[2025-07-04] MEDS: BENADRYL 50 MG IV ×2 (11:11→15:32)
[2025-07-04 11:14] LABS: Hematocrit 26.8 % (37.0-47.0); Hemoglobin 8.6 g/dL (12.0-16.0); Mean Corp Hgb Conc. 32.1 g/dL (33.0-37.0); Mean Corpuscular Volume 85.1 fL (81.0-99.0); Platelet Count 148 10^3/uL (130-400); Red Cell Dist. Width 16.6 % (11.5-14.5)
[2025-07-04] MEDS: ALDACTONE 100 MG PO (12:17)
[2025-07-04] MEDS: FOLVITE 5 MG PO (12:18)
[2025-07-04] MEDS: BIKTARVY 50-200-25 MG TABLET 1 TABLET PO (12:18)
[2025-07-04] MEDS: LEVAQUIN 750 MG PO (12:19)
[2025-07-04] MEDS: UNASYN IV ×3 (12:22→23:51)
--- NOTE | 2025-07-04 12:26 | W.PN.ONC2 ---
Today's Communication / Plan
-
repeat hgb stable at 8.6 g/dl. 1 unit pRBCs planned. no hx of frequent transfusions or antibodies however would limit additional transfusions unless hgb truly < 7.0 g/dl
bacteremia- picc removal, IV abx, ID following
pain control per primary team. IV hydration.
CTA chest ordered. continue ppx lovenox for now.
Impression
Impression
Sickle cell, SC disease
anemia, baseline 10-11 g/dl per pt -currently retic 3, LDH 293, and nml LFTs do not suggest aggressive hemolysis
chronic pain on chronic narcotics
hx VTE not currently on AC
hx of DEREK
HIV on Biktarvy
Plan
Plan
pulmonary consulted for GGO and hemoptysis
blood cultures positive for Enterococcus faecalis and Stenotrophomonas.
ID following.
agree with removal of PICC line.
CT with contrast deferred on admission w/ contrast allergy. LE US negative for DVT. Tachy without O2 requirements. with change in clinical status CTA chest now ordered with pre-meds.
continue ppx lovenox
false drop in hgb on am CBC to 6.4 g/dl likely from hemodilution. repeat prior to transfusion similar to hgb on admission at 8.6 g/dl. labs not suggestive for acute hemolysis. iron stores low (which can actually help to reduce risk for
veno-occlusive complications in SC disease). check stool Hemoccult. hold off on IV iron repletion with active infection, stable hgb.
continue home Hydrea, folic acid
ensure adequate hydration, supplemental O2 prn
pain management per primary service while hospitalized, has a house painter helper OP
bowel regimen prn constipation
Hgb electrophoresis, AKA hemoglobin evaluation with reflex per lab pending.
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
Subjective/Objective
Chief Complaint
- hx of sickle cell disease, hemopytsis, sepsis with bacteremia.
Subjective
pt was transferred to ICu overnight w/ spikes in temp to 103.9 w/ tachycardia. CBC, CMP this am with drop in hgb from 8.9 g/dl on admission to 6.4 g/dl w/ drop in WBC, plts not reported. BMP also with new electrolyte derangements with potassium
2.2, calcium 5.3, Mg 0.9. She is receiving electrolyte repletion. 2 units of blood ordered however requested nurse send repeat CBC due to concern for dilution with multiple values low. repeat CBC with hgb 8.6 g/dl. Her last episode of hemoptysis on
floor prior to transfer to ICU. She is hemodynamically stable, satting 96% on RA. She notes pain all over in back, chest, hips.
Vital Signs:
Vital Signs
Temp Pulse Resp BP Pulse Ox
98.7 F 114 22 113/79 99
07/04/25 11:08 07/04/25 12:17 07/04/25 07:00 07/04/25 12:17 07/04/25 09:34
Lab Results:
Laboratory Data
WBC 4.4 10^3/uL (4.8-10.8) L 07/04/25 11:01
Hgb 8.6 g/dL (12.0-16.0) L D 07/04/25 11:01
Plt Count 148 10^3/uL (130-400) D 07/04/25 11:01
PT 15.3 Sec (11.4-14.6) H 07/04/25 08:05
INR 1.17 07/04/25 08:05
APTT 30.5 Sec (23.4-35.0) 07/04/25 08:05
eGFR > 60.00 07/04/25 08:05
Physical Exam
HEENT: Other (morbidly obese ); No Jaundice
Cardiology: Normal Sinus Rhythm and Other (sinus tach)
Pulmonary: Rales (end-expiratory rales in upper L>R lung curtis )
Extremities: No Edema
Neuro: Non Focal
Review of Systems
Review of Systems
Constitutional: Reports Fever and Fatigue
Respiratory: Reports Dyspnea and Cough
Cardiovascular: Reports Chest Pain
Gastrointestinal: Denies Nausea/Vomiting
Neurological: Denies Headache
Psychiatric: Reports Depression
Orders
Orders
Orders From Last 24 Hours
07/04/25 11:01
CBC/No Diff [Complete Blood Count/No Diff] Stat
--- NOTE | 2025-07-04 12:30 | PTCARENOTE ---
1 set blood cultures obtained from R CW tunneled PICC by VAT; [address] Mena made aware; abx adjusted per MD- see OCT.
[2025-07-04] MEDS: PROTONIX IV 40 MG IV (14:14)
[2025-07-04] MEDS: NSS (PRESERVATIVE FREE) 10 ML IV (14:14)
[2025-07-04] MEDS: HYDREA 500 MG PO ×2 (14:15→20:03)
[2025-07-04] MEDS: ALDACTONE PO ×2 (15:25→15:28)
[2025-07-04] MEDS: SOLU-CORTEF 200 MG IV (15:32)
--- NOTE | 2025-07-04 16:06 | PTCARENOTE ---
Addendum entered by Daylin Gupta RN 07/04/25 16:11:
pt. @ baseline neuro status; Dr. Holm made aware and NIH/neuro checks cancelled per MD.
Original Note:
IV electrolyte replacement completed. 1 unit PRBC transfusion initiated and in progress- see TAR. Pt. agreeable to CT scan w pre-medication- see MAR. Plan for CT scan @ 1630.
[2025-07-04 17:12] LABS: Hematocrit 28.4 % (37.0-47.0); Hemoglobin 9.1 g/dL (12.0-16.0); Mean Corp Hgb Conc. 32.0 g/dL (33.0-37.0); Mean Corpuscular Volume 84.3 fL (81.0-99.0); Platelet Count 134 10^3/uL (130-400); Red Cell Dist. Width 16.6 % (11.5-14.5)
[2025-07-04 17:23] LABS: Blood Urea Nitrogen 8 mg/dl (7-17); Calcium 8.7 mg/dl (8.4-10.2); Carbon Dioxide 27 mmol/L (22-30); Chloride 103 mmol/L (98-107); Estimated Creatinine Clearance > 125 ml/min; Glucose 141 mg/dl (70-99); Magnesium 2.1 mg/dl (1.6-2.3); Potassium 3.9 mmol/L (3.5-5.1); Sodium 131 mmol/L (135-145); eGFR > 60.00
--- NOTE | 2025-07-04 17:36 | PTCARENOTE ---
pt. RN transported on monitoring via bed down to CT scan and back to rm [id number] for PE study- completed. Upon return to room, pt. c/o severe pain from laying flat and itching. Admin PRN IV Benadryl- see OCT. IV prn pain med not duet yet; Dr. Holm
made aware and further orders for 1x dose- see OCT. Pt. appears comfortable eating dinner s/p [employer]. Call ashleigh parker in reach.
--- NOTE | 2025-07-04 19:51 | W.PN.UPDATE ---
Update Note
Progress Note Update
Updated by ICU nursing about patient refusal for abdominal xray looking for metals prior to MRI (which she states she needs to be intubated prior to test) Patient also states her sister Yolie is (?).
--- NOTE | 2025-07-04 20:06 | PTCARENOTE ---
Received patient in bed AAOx3 and able to make her needs known. Verbalizes 10/10 whole body pain. Plan of care for the shift reviewed with the patient. X-ray at the bedside and the patient declined stating that she does not have metals in her body,
and declines MRI. Discussed reasoning for diagnostic testing and pt states that she cannot lay flat for testing. DIRECTOR PROCESS IMPROVEMENT called and made aware. PRN administered. Sinus tachy on the monitor with HR 103. Diminished breath sounds. SpO2 at 96% on room air. +
BS. Pt's voiding via the urinal clear yellow urine. Patient encouraged to turn and reposition at least Q2 hours to prevent pressure wounds. Pt verbalizes understanding. All needs are met at this time. Bed in the lowest position. Call sotelo and
personal belongings are within reach.
[2025-07-05] VITALS (10 sets, daily range): BP systolic 124–149; BP diastolic 66–111; BMI 47.9
[2025-07-05] MEDS: BENADRYL 25 MG IV ×4 (00:25→20:30)
[2025-07-05] MEDS: DILAUDID 1 MG IV ×6 (04:01→20:05)
[2025-07-05 04:28] LABS: Hematocrit 30.6 % (37.0-47.0); Hemoglobin 9.4 g/dL (12.0-16.0); Mean Corp Hgb Conc. 30.7 g/dL (33.0-37.0); Mean Corpuscular Volume 86.7 fL (81.0-99.0); Nucleated Red Blood Cells % 0 %; Platelet Count 151 10^3/uL (130-400); Red Cell Dist. Width 16.5 % (11.5-14.5)
[2025-07-05 04:50] LABS: Blood Urea Nitrogen 7 mg/dl (7-17); Calcium 8.6 mg/dl (8.4-10.2); Carbon Dioxide 27 mmol/L (22-30); Chloride 105 mmol/L (98-107); Estimated Creatinine Clearance > 125 ml/min; Glucose 167 mg/dl (70-99); Potassium 3.9 mmol/L (3.5-5.1); Sodium 136 mmol/L (135-145); eGFR > 60.00
[2025-07-05] MEDS: ZOFRAN 4 MG IV ×2 (05:05→20:30)
[2025-07-05] MEDS: UNASYN IV ×3 (05:36→18:04)
--- NOTE | 2025-07-05 06:13 | W.PN.UPDATE ---
Update Note
Progress Note Update
Patient requested to see me due to intractable pain. Will add extra dilaudid IV dose. She also is vomiting blood about 100mls approx into a vomit bag. Will add GI consult. Will increase Protonix to BID.
--- NOTE | 2025-07-05 06:38 | PTCARENOTE ---
[id number]: Patient vomited 100 ml of bloody emesis. Verbalizes pain and requested to speak to a physician or the ADOLESCENT COUNSELOR. Leelee Lagos. ADOLESCENT COUNSELOR at the bedside. Dilaudid 1 mg IV and Compazine ordered. When ADOLESCENT COUNSELOR, left prior to medication administration,
Patient noted to be calm, looking at her phone and smiling. No shakes or symptoms of pain noticed compared to previous symptoms. PRN administered.
--- NOTE | 2025-07-05 07:27 | W.PN.INTV ---
Today's Communication / Plan
Recommendations
Follow hemoglobin
Transfuse if needed
Hemoglobin electrophoresis and sickle cell solubility pending
Do not believe sickle cell crisis
No significant hemoptysis
Finite course of antibiotics
Multiple aliases and multiple local hospitalizations noted-risk management involved
Stable for transfer to telemetry-senior consultant and pulmonary will sign off
Assessment
-
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
CT chest showed ground glass opacities suggestive of infectious pneumonitis. Consulted on 07/03/[address]: Multiple centrilobular ground glass opacities left upper lobe, right middle lobe and left lower lobe.
Suspect infectious pneumonitis
Doubt diffuse alveolar hemorrhage
Community-acquired pneumonia
Hemoptysis-mild
Cough/chest pain-likely secondary to above.
History of sickle cell disease: Doubt acute chest syndrome.
Unclear baseline hemoglobin-she is originally from [place]
Reticulocyte count 2%
LDH 293
Normal LFTs
CVA alert 07/03/2025
Anemia from acute blood loss-doubt from hemoptysis-hemoglobin 6.4
Thrombocytopenia-platelet 114
Bacteremia-Enterococcus in stenotrophomonas
Hypocalcemia-calcium 5.3
Hypomagnesemia-magnesium 0.9
Hypokalemia-potassium 2.2
Leukopenia
Metabolic acidosis
GI bleed
Anemia due to acute blood loss-gastrointestinal
Chronic PICC line-unclear how long patient has had it and where patient obtained
Conditions present prior admission:
HIV
Sickle cell anemia-in question-hemoglobin electrophoresis pending
Chronic pain on narcotics
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
history of DVT treated with Lovenox-stopped several months ago-no details available.
Plan
Significant deterioration with significant anemia, severe hypokalemia, hypocalcemia, hypomagnesemia requiring transfusion and transfer to ICU
Respiratory status relatively stable
Continue supplemental oxygen
Chest x-ray-NAD
Nebulizers if needed-currently not bronchospastic
Aspiration precautions
Quantify hemoptysis-has not had significant hemoptysis
CT chest with PE protocol 07/04/2025-pending
Monitor hemoglobin
Transfuse as needed
Do not believe anemia due to acute blood loss is from pulmonary etiology
Look for gastrointestinal losses
PPI
Hematology following
GI evaluation pending
Monitor for acute chest syndrome-currently not suspected but pt complaints of pain all over-- asking for more pain meds-unclear whether patient actually has sickle cell disease-hemoglobin electrophoresis and sickle cell solubility pending
Retake count only 2%
Continue hydration
Check cultures
Empiric ceftriaxone and azithromycin-changed to ampicillin and levofloxacin
Infectious disease consultation
Has had PICC line for greater than 4 weeks-cultures pending-consider removal
CVA alert 07/03/2025
Neurology following
CT head negative
Brain MRI pending
DVT yxxkkyshdbe-[id number]-[id number] has been refusing
GI prophylaxis-on pantoprazole
Nutrition
Early mobilization
She is reportedly from [place] and visiting relatives for the last 2 weeks
Patient has at least a couple aliases, risk-management involved, multiple local hospitalizations including [facility] and [facility]
History of DVT treated with Lovenox that she 'hates Lovenox' that she stopped four months ago and states that she has been on anticoagulation most of her life
Patient hemodynamically stable-received 1 unit packed red blood cells-stable for transfer to telemetry-pulmonary will sign off
Reviewed the patient�s pertinent medical records including radiographs, microbiology, laboratory evaluations, and��discussion with primary team, consultants, pharmacy, nutrition, physical therapy, case management, charge nurse, critical care
nursing, and respiratory therapy.
Data
Chest x-ray 07/04/2025-NAD
Lower extremity ultrasound 07/03/2025-no evidence for DVT
CT head 07/03/2025-no acute intracranial abnormalities
Subjective Dataa
Subjective Data
Date of Service:
Date of Service: July 05, 2025
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
Subjective:
No further complaints of hemoptysis, 1 episode of hematemesis, complains of chest pain and abdominal pain, no shortness of breath
Review of Systems
General: Other (Per HPI)
Objective Data
Data Reviewed
Vital Signs / I&O / Oxygen:
Vital Signs
Temp Pulse Resp BP Pulse Ox
98.2 F 96 14 129/93 95
07/05/25 07:11 07/05/25 06:00 07/05/25 06:00 07/05/25 06:00 07/05/25 06:00
Intake and Output
07/04/25 07/05/25 07/06/25
06:59 06:59 06:59
Intake Total 720 / 720 8123.0 / 8123.0
Output Total 300 / 300 5275 / 5275
Balance 420 / 420 2848.0 / 2848.0
SaO2 95
Physical Exam
General: Respiratory Distress (n) and Comfortable
HEENT: Normocephalic, Anicteric and Moist Mucous Membranes
Cardiovascular: Regular Rhythm
Respiratory: Crackles (n), Rhonchi (n), Non-Labored Respirations, Accessory Resp Muscle Use (n) and Stridor (n)
GI: Soft and Tender
Neurology: Awake, Alert and No Motor Deficits
Skin: Warm, Good Color, Cyanosis (n) and Jaundice (n)
Labs/Micro/Reports
Lab Data
07/05/25 04:08
07/05/25 04:08
Laboratory Results
07/04/25
08:05
PT 15.3 H
INR 1.17
APTT 30.5
Microbiology
07/02/25 21:32 Blood/Venous Blood Culture - Preliminary
Enterococcus faecalis
Stenotrophomonas maltophilia
07/02/25 21:32 Blood/Venous Gram Stain - Preliminary
07/02/25 21:32 Blood/Venous Blood Culture - Preliminary
Positive culture in progress
07/02/25 21:32 Blood/Venous Gram Stain - Preliminary
07/02/25 16:11 Nasal Swab Influenza Types A & B (DAXA) - Final
Negative for Influenza A & B, NAAT
Negative results must be combined with clinical observations
and patient history.
Nucleic Acid Amplification test (NAAT)performed on the
[employer] platform.
[2025-07-05] MEDS: NSS (PRESERVATIVE FREE) 10 ML IV ×2 (07:54→20:01)
[2025-07-05] MEDS: PROTONIX IV 40 MG IV ×2 (07:55→20:00)
[2025-07-05] MEDS: FOLVITE 5 MG PO (07:56)
[2025-07-05] MEDS: ALDACTONE PO ×4 (07:56→16:08)
[2025-07-05] MEDS: LEVAQUIN 750 MG PO (07:56)
[2025-07-05] MEDS: OXYCONTIN (CONTROLLED RELEASE) 15 MG PO ×2 (07:57→20:30)
[2025-07-05] MEDS: NSS 1000 IV ×2 (08:09→16:09)
[2025-07-05] MEDS: HYDREA 500 MG PO ×2 (08:11→20:00)
--- NOTE | 2025-07-05 08:34 | PTCARENOTE ---
MRI Refused
Patient Awake and oriented x 3 . Refusing MRI due to severe claustrophobia and inability to lie flat for the duration of the MRI. Patient reported that during passed hospitalizations she was pre-treated with Ativan, however she still was not able to
go through MRI
MRI department made aware
[2025-07-05] MEDS: BIKTARVY 50-200-25 MG TABLET 1 TABLET PO (08:54)
--- NOTE | 2025-07-05 12:01 | W.PN.ID1 ---
Date of Service
Date of Service: July 05, 2025
Today's Communication
Continue abx's.
Assessment / Plan
#Polymicrobial CLABSI with Enterococcus faecalis and Stenotrophomonas, present on admission
#Fever - resolving
#Hemoptysis - Procalcitonin negative, not consistent with bacterial PNA
# Upper GI bleed/coffee ground emesis. Hx bleeding gastric ulcer
#Sickle cell without crisis
#HIV, reportedly well-controlled on Biktarvy
#Transgender female
- Repeat bcx's: 1 set from PICC remains positive; peripheral bcx pending
-Repeat peripheral Bcx in am
- Agree with DC PICC, cx tip
- Continue levofloxacin 750mg po daily and Unasyn 3g IV q6 (d2).
- Continue Biktarvy for HIV.
- Trend fever.
Conditions present on admission:
Transgender female
HIV dx 2008, on Biktarvy
Sickle cell
hx DVT/PE
hx GI bleed from gastric ulcer- clamped, per pt
Chronic pain syndrome
Perirectal abscess
Bilateral hip avascular necrosis
Class III obesity BMI 48
Breast implants
Appendectomy
Chief Complaint
-: Fever and Bacteremia
Subjective / Review of Systems
Vomiting blood. Reports h/o gastric ulcer - clamped.
Vital Signs / Physical Exam
Vital Signs
Vital Signs
Temp Pulse Resp BP Pulse Ox
98.2 F 95 22 127/66 98
07/05/25 07:11 07/05/25 11:00 07/05/25 11:00 07/05/25 10:00 07/05/25 11:00
Physical Exam
Constitutional: No Acute Distress and Comfortable
Eyes: No Conjunctival Hemorrhage and Sclera Anicteric
Cardiovascular: Regular Rate and S1/S2
Pulmonary: Clear
Gastrointestinal: Soft, Non Tender, Non Distended and Normal Bowel Sounds
Extremities: Negative Edema
Neurological: AO x 3
Lines: PICC ([facility] Picc no erythema)
Objective Data
Lab Data
Lab Results
07/05/25 04:08
07/05/25 04:08
PT 15.3 Sec (11.4-14.6) H 07/04/25 08:05
INR 1.17 07/04/25 08:05
APTT 30.5 Sec (23.4-35.0) 07/04/25 08:05
Estimated Creat Clear > 125 ml/min 07/05/25 04:08
Lactic Acid 1.0 mmol/L (0.7-2.0) 07/04/25 08:05
Total Bilirubin 0.5 mg/dl (0.2-1.3) 07/04/25 08:05
AST 43 U/L (14-36) H 07/04/25 08:05
ALT 21 U/L (0-35) 07/04/25 08:05
Alkaline Phosphatase 52 U/L (38-126) 07/04/25 08:05
Most recent labs reviewed.
Micro Results:
07/02/25 21:32 Blood Culture - Preliminary
Blood/Venous Enterococcus faecalis
Stenotrophomonas maltophilia
Gram Stain - Preliminary
07/02/25 21:32 Blood Culture - Preliminary
Blood/Venous Positive culture in progress
Gram Stain - Preliminary
07/04/25 08:05 Blood Culture - Preliminary
Blood/Venous Positive culture in progress
Gram Stain - Preliminary
07/04/25 12:11 Blood Culture - Pending
Blood/Venous
07/02/25 16:11 Influenza Types A & B (DAXA) - Final
Nasal Swab Negative for Influenza A & B, NAAT
Negative results must be combined with clinical observations
and patient history.
Nucleic Acid Amplification test (NAAT)performed on the
[email or web address] platform.
07/04/25 CT chest: Patchy groundglass opacities as described above suggestive of pneumonia. Significantly progressed. Pulmonary hemorrhage not excluded. No evidence of pulmonary embolus.
07/04/25 CXR: No acute cardiopulmonary process.
07/02/[address]: MULTIPLE CENTRILOBULAR GROUND-GLASS OPACITIES in the LEFT UPPER LOBE and single ground-glass opacities in the right middle and left lower lobe. Diagnostic possibilities are (1) acute pulmonary hemorrhage (probably most likely given
the history of hemoptysis) or (2) pneumonia.
Care Review
Plan reviewed with: Nurse
--- NOTE | 2025-07-05 12:07 | W.PN.HOSP.TC ---
Today's Communication/Plan
-
continue abx per ID; repeat cultures; PICC removal Sunday with tip culture to be sent
continue IVF
GI eval for hematemesis; continue PPI
follow ID/Pulm/Heme recs
Assessment / Plan
Assessment / Plan
Assessment:
Chest pain
Community acquired pneumonia
- CT: MULTIPLE CENTRILOBULAR GROUND-GLASS OPACITIES in the LEFT UPPER LOBE and single ground-glass opacities in the right middle and left lower lobe. Diagnostic possibilities are (1) acute pulmonary hemorrhage (probably most likely given the history
of hemoptysis) or (2) pneumonia.
- ddx: pneumonia or aspiration of blood from vomiting blood
- procal negative. Remains on Levaquin/Unasyn. Follow cultures
- as needed O2 therapy
- Pulmonary/ICU following
Acute blood loss anemia (hematemesis)
also sickle cell
- s/p 2 units PRBC
- Hb stable
- PPI
- GI evaluation
CVA alert 07/03
- CT head negative
- MRI recommended by Neurology; patient would require pre-screening abdomen Xray. patient refusing Xray. Requesting anesthesia and intubation for MRI.
- will cancel MRI and perform repeat CT in AM to determine any delayed presentation of CVA; NIH Score is 0 at present
- follow Neuro recs
Enterococcus and Stenotrophomonas bacteremia
hx of indwelling PICC line
- repeat bcx x 2 from PICC and peripherally
- ID following; continue Levaquin/Unasyn
- IR consulted; PICC to be removed Sunday. Culture Tip.
- follow cultures for clearance
hx of sickle cell disease (SC disease)
- LDH 293 (normal up to 245)
- retic 3% -> 2%
- bilirubin remains normal
- Hb S pending
- unlikely acute sickle crisis
- continue IVF
- continue Hydrea/Folic acid
- pain control - On OxyContin 10mg q12h; plus oxycodone 5mg q4h prn. breakthrough Dilaudid. concurrent bowel regimen.
- no PDMP verification possible as patient states she is visiting from [place]
- states that she is cared for at [facility] - called, only open weekends (11 AM to 1 PM)
- iron stores low; holding off IV iron with active infection per Hematology
- LE US negative
- PE and DVT studies negative
Hypocalcemia
Hypokalemia
Hypomagnesemia
- repleted to normal levels
acute Hyponatremia
- monitor
hx of HIV
- on Biktarvy
DVT ppx: Lovenox
Code: Full
Total Critical Care Time 45 minutes. I was immediately available to the patient and staff. I personally examined, reviewed labs, diagnostic images/reports, interpretations, treatment plans, discussed patient care with other providers and family
or caregivers (if patient is unable to make decisions), entered orders as appropriate and documented the medical record.
Anticipated Discharge: > 48 hours
Subjective/Interval History
-
Date of Service: July 05, 2025
reports of hematemesis overnight
Hb 9.4 today; stable from yesterday
Bcx remains positive
Objective Data
-
Labs:
Laboratory Results
07/05/25
04:08
WBC 3.5 L
Hgb 9.4 L
Hct 30.6 L
Plt Count 151
Sodium 136
Potassium 3.9
Chloride 105
Carbon Dioxide 27
BUN 7
Creatinine 0.8
Glucose 167 H
Calcium 8.6
Vital Signs:
Vital Signs
Temp Pulse Resp BP Pulse Ox
98.2 F 95 22 127/66 98
07/05/25 07:11 07/05/25 11:00 07/05/25 11:00 07/05/25 10:00 07/05/25 11:00
I&O
07/04/25 07/05/25 07/06/25
06:59 06:59 06:59
Intake Total 720 / 720 8123.0 / 8123.0 795 / 795
Output Total 300 / 300 5275 / 5275
Balance 420 / 420 2848.0 / 2848.0 795 / 795
Physical Exam
-
General: No Apparent Distress
HEENT: Normocephalic and Atraumatic
Respiratory: Negative Wheezes
Cardiac: Regular Rhythm and S1/S2
GI: Soft
Musculoskeletal: No Edema
Skin: IV Access / Catheter Site (Chest tunnelled PICC)
Neuro: AO x 3
Psych: Calm
Data Reviewed
-
Total Time Spent with Patient (in minutes): 42
Labs: Labs Reviewed by me
--- NOTE | 2025-07-05 16:14 | CON.GI ---
Consultation
-
Date/Time Consultation Requested: 07/05/2025
Date/Time Consultation Performed: 07/05/2025
Performing Provider: Guillaume Richter
Reason for Consultation: hematemesis, anemia
Medical History
Chief Complaint / HPI
Chief Complaint: hematemesis, anemia
History of Present Illness:
40 year old male to female transition with h/o PE and HIV who p/w chest pain and SOB and found to have multifocal infiltrates on CT scan. She did have hemoptysis and concern for possible alveolar hemorrhage. Pulm evaluated the pt, ? pneumonitis,
relatively stable respiratory-farooq, no further hemoptysis and stable in RA. GI consulted for evaluation of hematemesis x 2. Last episode early this AM. Denies abdo pain. Denies melena. No NSAID use.
Past Medical History
Past Medical History: Other
Past Surgical History: Appendectomy and Other
Social History
Tobacco: Non-Smoker
Alcohol: None
Drug: None
Allergies / Home Medications
Allergy/AdvReac Type Severity Reaction Status Date / Time
NSAIDS (Non-Steroidal Allergy Unknown Verified 07/02/25 14:38
Anti-Inflamma
Iv contrast Allergy Unknown Uncoded 07/02/25 14:38
�Medication �Instructions �Recorded
bictegravir 50 mg-emtricitabine 1 tab PO DAILY ANTIVIRAL 07/03/25
200 mg-tenofovir alafenam 25 mg
tablet (Biktarvy)
folic acid 1 mg tablet 5 mg PO DAILY Supplement 07/03/25
hydroxyurea 500 mg capsule 500 mg PO BID CHEMO 07/03/25
oxycodone 20 mg tablet 20 mg PO Q4H PRN pain 07/03/25
oxycodone 30 mg tablet,extended 30 mg PO BID Pain 07/03/25
release,12 hr
spironolactone 100 mg tablet 100 mg PO BID Fluid 07/03/25
(Aldactone) Retention/Swelling
Review of Systems
Vital Signs
Temp Pulse Resp BP Pulse Ox
98.4 F 95 22 127/66 98
07/05/25 15:12 07/05/25 11:00 07/05/25 11:00 07/05/25 10:00 07/05/25 11:00
Physical Exam
Exam
General: Well Developed, Well Nourished and No Apparent Distress
HEENT: Normocephalic and Anicteric
Respiratory: Clear
Cardiac: S1/S2
GI: Soft, Non Tender, Non Distended and Normal Bowel Sounds
Results
WBC 3.5 10^3/uL (4.8-10.8) L 07/05/25 04:08
Hgb 9.4 g/dL (12.0-16.0) L 07/05/25 04:08
Hct 30.6 % (37.0-47.0) L 07/05/25 04:08
MCV 86.7 fL (81.0-99.0) 07/05/25 04:08
Plt Count 151 10^3/uL (130-400) 07/05/25 04:08
Absolute Neuts (auto) 1.9 10^3/uL (1.4-6.5) 07/05/25 04:08
PT 15.3 Sec (11.4-14.6) H 07/04/25 08:05
INR 1.17 07/04/25 08:05
APTT 30.5 Sec (23.4-35.0) 07/04/25 08:05
Sodium 136 mmol/L (135-145) 07/05/25 04:08
Potassium 3.9 mmol/L (3.5-5.1) 07/05/25 04:08
Chloride 105 mmol/L (98-107) 07/05/25 04:08
Carbon Dioxide 27 mmol/L (22-30) 07/05/25 04:08
BUN 7 mg/dl (7-17) 07/05/25 04:08
Creatinine 0.8 mg/dL (0.6-1.0) 07/05/25 04:08
Calcium 8.6 mg/dl (8.4-10.2) 07/05/25 04:08
Total Bilirubin 0.5 mg/dl (0.2-1.3) 07/04/25 08:05
AST 43 U/L (14-36) H 07/04/25 08:05
ALT 21 U/L (0-35) 07/04/25 08:05
Alkaline Phosphatase 52 U/L (38-126) 07/04/25 08:05
Lipase 28 U/L (23-300) 07/02/25 16:11
Diagnostic Image Results:
Prior GI Procedures:
EGD:
Colonoscopy:
Assessment / Plan
-
40 year old male to female transition with h/o PE and HIV who p/w chest pain and SOB and found to have multifocal infiltrates on CT scan. She reported hemoptysis and concern for possible alveolar hemorrhage. Pulm evaluated the pt, ? pneumonitis,
relatively stable respiratory-farooq, no further hemoptysis and stable in RA. GI consulted for evaluation of hematemesis x 2.
Impression / Rec:
1. Hematemesis - occurred x 2, last episode early this AM, no further since. Denies abdo pain, no NSAID use. Hgb 9 on admission, dropped to 6.4 but responded appropriate to pRBC transfusion. Denies melena. Will plan on EGD tomorrow for
exclusion of UGIB. Continue with PPI.
Total Time Spent with Patient (in minutes): 55
-
-
Thank you for consultation and allowing me to participate in the patient's care. Please call the vocational nursing instructor GI physician during the after hours with any questions or concerns.
--- NOTE | 2025-07-05 16:17 | PTCARENOTE ---
- patient in bed. AAO x 3; continues with complaints with whole body pain secondary to sickle cell crisis (per patient ) . Dilaudid and Bendryl per prn order administered per order with + pain relieve.
-Normal Sinus Rhythm 97 BP 149/81 MAP 101
-Voiding in a urinal independently
-Appetite good. No vomiting episodes during this shift
-Rt tunnel PICC line DL _ one dressing intact. 0.9% NSS at 125/hr
[2025-07-05 19:12] LABS: Capillary Hgb Electrophoresis Not Performed; Hemoglobin - Other 0.0 % (0.0-0.0); Sickle Cell Solubility Reflex Not Performed
--- NOTE | 2025-07-05 20:00 | PTCARENOTE ---
Assumed care of patient. Hand-off drip validation completed. Patient is alert and oriented x3. Pain 10/10 all over body, medication given for pain. Patient is in normal sinus rhythm with adequate blood pressure. Pulses palpable. Lungs are clear on
room air. Abdomen is obese, soft, non-distended. Patient is continent to urinal and bathroom. PICC line in place, site c/d/i.
[2025-07-06] VITALS: BP 149/97
[2025-07-06] MEDS: NSS 1000 IV ×2 (00:05→09:13)
[2025-07-06] MEDS: DILAUDID 1 MG IV ×4 (00:06→08:29)
[2025-07-06] MEDS: UNASYN IV ×3 (00:07→13:29)
--- NOTE | 2025-07-06 00:35 | PTCARENOTE ---
Patient complaining of 10/10 pain, medication given per orders. No other changes in assessment
[2025-07-06] MEDS: ROXICODONE 5 MG PO (01:37)
[2025-07-06] MEDS: BENADRYL 25 MG IV ×2 (02:36→08:29)
[2025-07-06] MEDS: ZOFRAN 4 MG IV (02:37)
[2025-07-06 03:11] LABS: Hematocrit 28.7 % (37.0-47.0); Hemoglobin 9.1 g/dL (12.0-16.0); Mean Corp Hgb Conc. 31.7 g/dL (33.0-37.0); Mean Corpuscular Volume 84.9 fL (81.0-99.0); Nucleated Red Blood Cells % 0 %; Platelet Count 158 10^3/uL (130-400); Red Cell Dist. Width 16.8 % (11.5-14.5)
[2025-07-06 03:34] LABS: Blood Urea Nitrogen 5 mg/dl (7-17); Calcium 8.2 mg/dl (8.4-10.2); Carbon Dioxide 26 mmol/L (22-30); Chloride 105 mmol/L (98-107); Estimated Creatinine Clearance > 125 ml/min; Glucose 260 mg/dl (70-99); Potassium 3.8 mmol/L (3.5-5.1); Sodium 132 mmol/L (135-145); eGFR > 60.00
[2025-07-06 04:00] VITALS: BP 133/84
[2025-07-06] MEDS: NSS IV (05:55)
[2025-07-06 06:00] VITALS: BMI 47.9
--- NOTE | 2025-07-06 08:30 | W.PN.HOSP.TC ---
Today's Communication/Plan
-
see plan
Assessment / Plan
Assessment / Plan
Assessment:
Ms. Nadya Sanchez is a 40 yo woman with hx HIV on Biktarvy, sickle cell disease, hx VTE, chronic pain on narcotics presents to the ER with chest pain and shortness of breath, found to have infectious pneumonitis (CT reading possible alveolar
hemorrhage less likely) with hospital course complicated by acute left arm and leg weakness (CVA alert called, patient refusing MRI).
CHEST CT 07/02
IMPRESSION:
1. MULTIPLE CENTRILOBULAR GROUND-GLASS OPACITIES in the LEFT UPPER LOBE and single ground-glass opacities in the right middle and left lower lobe. Diagnostic possibilities are (1) acute pulmonary hemorrhage (probably most likely given the history
of hemoptysis) or (2) pneumonia.
2. Mild elevation of the right hemidiaphragm.
3. Right internal jugular tunneled PICC line in place.
4. Mild splenomegaly.
CHEST CT 07/04
IMPRESSION:
Patchy groundglass opacities as described above suggestive of pneumonia. This pattern can be seen with Covid 19 type pneumonia. Significantly progressed. Pulmonary hemorrhage not excluded
No evidence of pulmonary embolus.
If the patient has emphysema, patient should be assessed for an annual low dose lung cancer CT program, as pulmonary emphysema is an independent risk factor for lung canc
HEAD CT 07/03
IMPRESSION:
No acute intracranial abnormality.
Chest pain
Community acquired pneumonia
Enterococcus and Stenotrophomonas bacteremia
-follow up repeat cultures
-appreciate ID: continue Levaquin/Unasyn
-appreciate Pulmonary
-appreciate IR - plan for PICC removal today, culture tip
Acute blood loss anemia; Hematemesis
- drop in Hg to 6.4 on 07/04; s/p 2 units PRBC
- Hb stable
- PPI
- GI evaluation; NPO for EGD today
CVA alert 07/03
- CT head negative
- MRI recommended by Neurology; patient would require pre-screening abdomen Xray. patient refusing Xray. Requesting anesthesia and intubation for MRI.
- will cancel MRI and perform repeat CT in AM to determine any delayed presentation of CVA; NIH Score is 0 at present
- follow Neuro recs
hx of sickle cell disease (SC disease)
- LDH 293 (normal up to 245)
- retic 3% -> 2%
- bilirubin remains normal
- Hb S pending
- unlikely acute sickle crisis
- continue IVF
- continue Hydrea/Folic acid
- pain control - On OxyContin 10mg q12h; plus oxycodone 5mg q4h prn. breakthrough Dilaudid. concurrent bowel regimen.
- no PDMP verification possible as patient states she is visiting from [place]
- states that she is cared for at [facility] - called, only open weekends (11 AM to 1 PM)
- iron stores low; holding off IV iron with active infection per Hematology
- LE US negative
- PE and DVT studies negative
Hypocalcemia
Hypokalemia
Hypomagnesemia
- repleted to normal levels
acute Hyponatremia
- monitor
hx of HIV
- on Biktarvy
DVT ppx: Lovenox
Code: Full
51 minutes spent on patient care
Anticipated Discharge: > 48 hours
Subjective/Interval History
-
Date of Service: July 06, 2025
no further vomiting overnight
Objective Data
-
Labs:
Laboratory Results
07/06/25
02:38
WBC 4.6 L
Hgb 9.1 L
Hct 28.7 L
Plt Count 158
Sodium 132 L
Potassium 3.8
Chloride 105
Carbon Dioxide 26
BUN 5 L
Creatinine 0.8
Glucose 260 H
Calcium 8.2 L
Vital Signs:
Vital Signs
Temp Pulse Resp BP Pulse Ox
98.3 F 94 8 133/84 100
07/06/25 08:06 07/06/25 06:00 07/06/25 06:00 07/06/25 04:00 07/06/25 04:00
I&O
07/05/25 07/06/25 07/07/25
06:59 06:59 06:59
Intake Total 8123.0 / 8123.0 4055 / 4055
Output Total 5275 / 5275 3600 / 3600
Balance 2848.0 / 2848.0 455 / 455
Review of Systems
-
History Source: Patient
All other systems: Reviewed and negative
Physical Exam
-
General: No Apparent Distress
HEENT: Normocephalic and Atraumatic
Respiratory: Rhonchi; Negative Wheezes
Cardiac: Regular Rhythm and S1/S2
GI: Soft
Musculoskeletal: No Edema
Skin: IV Access / Catheter Site (Chest tunnelled PICC)
Neuro: AO x 3
Psych: Calm
Data Reviewed
-
Diagnostic Radiology: Report Reviewed by me
Labs: Labs Reviewed by me
[2025-07-06] MEDS: ALDACTONE PO (08:32)
[2025-07-06] MEDS: LEVAQUIN 750 MG PO (09:05)
[2025-07-06] MEDS: FOLVITE 5 MG PO (09:05)
[2025-07-06] MEDS: OXYCONTIN (CONTROLLED RELEASE) 15 MG PO (09:05)
[2025-07-06] MEDS: HYDREA 500 MG PO (09:06)
[2025-07-06] MEDS: PROTONIX 40 MG PO (09:06)
[2025-07-06] MEDS: BIKTARVY 50-200-25 MG TABLET 1 TABLET PO (09:08)
--- NOTE | 2025-07-06 09:09 | PTCARENOTE ---
Assumed care of patient this morning. patient was sleeping, resting in bed comfortably, requesting pain medication for whole body pain 10:10. Administered dilaudid and benedryl IV. Asked patient if they were ready to go to CT scan as they had
called for patient. Patient requested to go later, at 10am. Explained to patient that they may not be able to accomidate as there are other patients waiting for testing. Patient then asked if IR would place EJ or IJ and if she was still NPO but
that she still needed IV access. explained to patient that she was to get tunneled PICC out due to possible source of infection and that IR would place other access. Obtained morning medications and patient refused spironolactone. Asked patient
if she was going to continue to refuse certain medications and treatment. Patient then stared straight ahead, asked for another nurse and then refused to speak with me further. Notified charge nurse and roustabout supervisor and other nurse assignment
obtained.
--- NOTE | 2025-07-06 09:28 | PTCARENOTE ---
Patient to go to IR then will go to [phone]
[2025-07-06 10:58] VITALS: BP 152/97
--- NOTE | 2025-07-06 11:37 | W.PN.ID1 ---
Date of Service
Date of Service: July 06, 2025
Today's Communication
See below.
Assessment / Plan
#Polymicrobial CLABSI with Enterococcus faecalis and Stenotrophomonas, present on admission
#Fever - resolved
#Hemoptysis - Procalcitonin negative, not consistent with bacterial PNA
# Upper GI bleed/coffee ground emesis. Hx bleeding gastric ulcer
#Sickle cell without crisis
#HIV, reportedly well-controlled on Biktarvy
#Transgender female
-07/02/25 bcx 1 set S. maltophilia + E. faecalis; 2nd set S. maltophilia
- 07/04/25 1 set from PICC E. faecalis; 1 set peripheral bcx neg to date
- Pt returned from IR - refused dc PICC, refused new temporary CVC IJ. Femoral line too high risk for infection.
- Difficult peripheral sticks.
- Repeat blood cx's from PICC. Hopefully, will clear, then exchange for new PICC.
- Continue levofloxacin 750mg po daily and Unasyn 3g IV q6 (d3).
- Continue Biktarvy for HIV.
- Trend fever.
Conditions present on admission:
Transgender female
HIV dx 2008, on Biktarvy
Sickle cell
hx DVT/PE
hx GI bleed from gastric ulcer- clamped, per pt
Chronic pain syndrome
Perirectal abscess
Bilateral hip avascular necrosis
Class III obesity BMI 48
Breast implants
Appendectomy
Chief Complaint
-: Fever and Bacteremia
Subjective / Review of Systems
c/o generalized pain.
Hemoptysis decreased.
No coffee-ground emesis overnight.
Vital Signs / Physical Exam
Vital Signs
Vital Signs
Temp Pulse Resp BP Pulse Ox
98.2 F 98 18 152/97 100
07/06/25 10:58 11/10/25 10:58 07/06/25 10:58 07/06/25 10:58 07/06/25 10:58
Physical Exam
Constitutional: No Acute Distress, Comfortable and Non-toxic
Cardiovascular: Regular Rate and S1/S2
Pulmonary: Clear
Gastrointestinal: Soft, Non Tender, Non Distended and Normal Bowel Sounds
Extremities: Negative Edema
Neurological: AO x 3
Lines: PICC (RIJ no erythema)
Objective Data
Lab Data
Lab Results
07/06/25 02:38
07/06/25 02:38
PT 15.3 Sec (11.4-14.6) H 07/04/25 08:05
INR 1.17 07/04/25 08:05
APTT 30.5 Sec (23.4-35.0) 07/04/25 08:05
Estimated Creat Clear > 125 ml/min 07/06/25 02:38
Lactic Acid 1.0 mmol/L (0.7-2.0) 07/04/25 08:05
Total Bilirubin 0.5 mg/dl (0.2-1.3) 07/04/25 08:05
AST 43 U/L (14-36) H 07/04/25 08:05
ALT 21 U/L (0-35) 07/04/25 08:05
Alkaline Phosphatase 52 U/L (38-126) 07/04/25 08:05
Most recent labs reviewed.
Micro Results:
07/04/25 08:05 Blood Culture - Preliminary
Blood/Venous Enterococcus faecalis
Gram Stain - Final
07/02/25 21:32 Blood Culture - Preliminary
Blood/Venous Stenotrophomonas maltophilia
Gram Stain - Preliminary
07/02/25 21:32 Blood Culture - Final
Blood/Venous Enterococcus faecalis
Stenotrophomonas maltophilia
Gram Stain - Final
07/04/25 12:11 Blood Culture - Preliminary
Blood/Venous No Growth in 24 hours- Final report to follow
07/02/25 16:11 Influenza Types A & B (DAXA) - Final
Nasal Swab Negative for Influenza A & B, NAAT
Negative results must be combined with clinical observations
and patient history.
Nucleic Acid Amplification test (NAAT)performed on the
[employer] platform.
07/04/25 CT chest: Patchy groundglass opacities as described above suggestive of pneumonia. Significantly progressed. Pulmonary hemorrhage not excluded. No evidence of pulmonary embolus.
07/04/25 CXR: No acute cardiopulmonary process.
07/02/[address]: MULTIPLE CENTRILOBULAR GROUND-GLASS OPACITIES in the LEFT UPPER LOBE and single ground-glass opacities in the right middle and left lower lobe. Diagnostic possibilities are (1) acute pulmonary hemorrhage (probably most likely given
the history of hemoptysis) or (2) pneumonia.
Care Review
Plan reviewed with: Physician (Dr. Santana)
[2025-07-06 13:00] VITALS: BP 152/97
--- NOTE | 2025-07-06 13:35 | PTCARENOTE ---
Pt returned from PACU after EGD c/o excruciating pain. PACU nurse stated pt received Dilaudid 1mg IV in PACU around approx 1300. Too early for me to medicate here on the floor. Pt very angry to not get the pain meds. Pt refused the Oxycodone 5mg po.
Dr. Santana made aware and Dilaudid 0.25mg IV ordered x 1 and given at 1401. Pt angry that dose was only 0.25 and immediately began pulling off her telemetry leads and stating , 'I'm leaving. I've had enough of this'. Dr Santana aware and will be up to
speak to the patient.
[2025-07-06] MEDS: DILAUDID 0.25 MG IV (14:01)
--- NOTE | 2025-07-06 14:53 | PTCARENOTE ---
Pt was seen walking in the [place] stating,'I'm leaving. I'm over this.' Attempted to stop patient stating Dr Santana is coming. Pt was at the elevator and Dr Santana came out of the stairwell and attempted to stop pt from leaving. Pt was able to tell the
and this nurse her risks for leaving, potentially could from her infection. Pt would not sign the AMA paperwork and got onto the elevator and left. Dr. Santana was present for this.
--- NOTE | 2025-07-06 14:56 | W.PN.UPDATE ---
Update Note
Progress Note Update
Patient requested more IV dilaudid post EGD and small dose given as she had just received within past hour. She reported excruciating pain but was using her phone. I was then told that she wanted to speak to me. Upon arrival to floor, patient was
already waiting by the elevator to leave. I asked her why she was leaving and she said 'I'm sick of this.' I asked if she was in pain and she said no. She wouldn't elaborate why she wanted to leave. I asked if she knew the risks of leaving the
hospital and she said 'I can .'. Unfortunately, i was not able to convince patient to stay for continuation of care and treatment of bacteremia and pneumonia. She refused to sign AMA papers. She was seen by me and RN.
--- NOTE | 2025-07-06 15:02 | W.DCSUMMARY ---
Discharge Summary
Discharge Data
Date of Admission: 07/02/25
Date of Discharge: 07/06/25
-
Pending Results: Yes
Additional Pending Results:
final blood cultures
Hospital Course
Discharging Physician : Dr. Lorna Santana
Patient eloped without signing AMA forms on 07/06/25. Please see update note.
Principal Discharge diagnosis : Enterococcus and Stenotrophomonas bacteremia, pneumonia, hematemesis
Hospital Course :
Please see daily progress notes for further details.
Ms. Nadya Sanchez is a 40 yo woman with hx HIV on Biktarvy, sickle cell disease, hx VTE (self discontinued Lovenox), chronic pain on narcotics presents to the ER with chest pain and shortness of breath.
In the emergency department she was satting 99% on room air but was placed on oxygen for comfort. Blood pressure was 147/101, pulse was 113 and temperature was 98.1. CBC had a white count of 5.4, hemoglobin 8.9 plate count of 182. Electrolytes
BUN/creatinine were all normal. T. bili was 0.5, LDH 290, reticulocyte count was 3%. CT of the chest without contrast shows ground glass opacities in the left upper lobe and a single ground glass opacity in the right middle lobe with diagnostic
possibilities include acute pulmonary hemorrhage or secondary to pneumonia
Patient was admitted to medicine with ID, Hematology and Pulmonary consulting for treatment of suspected pneumonia. Blood cultures grew positive for Enterococcus and Stenotrophomonas bacteremia. She was maintained on antibiotics, transitioned to
Levaquin and Unasyn with blood culture results. Plan was for PICC line exchange once blood cultures clear.
Hospital course complicated by acute left arm and leg weakness, stroke alert called. Patient refused further work-up with MRI. Deficits had resolved.
Hospital course complicated by hematemesis. She received a total of 2 units PRBC during hosptialization. She is s/p EGD today, results below. Clotted blood and hemetin seen in gastric fundus.
Unfortunately, before PICC line could be exchanged, patient eloped from the hospital. She refused to sign AMA forms. She understood the risks of untreated infection that could lead to if leaving the hospital. She is encouraged to seek care
elsewhere to continue her antibiotic course.
Time spent on discharge was 40 minutes.
Important imaging findings :
CHEST CT 07/02
IMPRESSION:
1. MULTIPLE CENTRILOBULAR GROUND-GLASS OPACITIES in the LEFT UPPER LOBE and single ground-glass opacities in the right middle and left lower lobe. Diagnostic possibilities are (1) acute pulmonary hemorrhage (probably most likely given the history
of hemoptysis) or (2) pneumonia.
2. Mild elevation of the right hemidiaphragm.
3. Right internal jugular tunneled PICC line in place.
4. Mild splenomegaly.
CHEST CT 07/04
IMPRESSION:
Patchy groundglass opacities as described above suggestive of pneumonia. This pattern can be seen with Covid 19 type pneumonia. Significantly progressed. Pulmonary hemorrhage not excluded
No evidence of pulmonary embolus.
If the patient has emphysema, patient should be assessed for an annual low dose lung cancer CT program, as pulmonary emphysema is an independent risk factor for lung cancer
HEAD CT 07/03
IMPRESSION:
No acute intracranial abnormality.
Procedure findings :
EGD 07/06/25
Impression:
- Normal esophagus.
- Clotted blood and hematin in the gastric fundus.
- Multiple endoclips were found in the stomach. No bleeding lesion
was found.
- Normal duodenal bulb, first portion of the duodenum and second
portion of the duodenum.
- No specimens collected.
Recommendation:
- Return patient to [facility] for ongoing care.
- Use Protonix (pantoprazole) 40 mg PO daily today.
- Full liquid diet today. Advance diet as tolerated.
Discharge Plan
-
Referrals:
NONE,* [Family Provider, Internal Medicine]
Prescriptions:
No Action
hydroxyurea 500 mg Capsule
500 mg PO BID
spironolactone [Aldactone] 100 mg Tablet
100 mg PO BID
folic acid 1 mg Tablet
5 mg PO DAILY
OxyContin 30 mg Tablet Extended Release 12 Hr
30 mg PO BID
oxycodone 20 mg Tablet
20 mg PO Q4H PRN (Reason: pain)
Biktarvy 50-200-25 mg Tablet
1 tab PO DAILY
Discharge Date and Time
Print Language: POLISH
--- NOTE | 2025-07-06 15:25 | W.PN.ONC2 ---
Today's Communication / Plan
-
ID, pulmonary, GI following
primary supervisor lead burning follow up upon discharge for continued management of DEREK, hx VTE, and reported SCC, though unable to confirm history with primary hematology
Impression
Impression
Sickle cell, SC disease reported by pt, we reviewed that her Hgb evaluation here was negative. She reports that she has been on hydrea for 20years. I called the office that she says that she is treated to confirm, however, only able to leave a
voicemail so unable to confirm hx or treatment
anemia, baseline 10-11 g/dl per pt -currently retic 3, LDH 293, and nml LFTs do not suggest aggressive hemolysis. EGD with clotted blood and hematin in the gastric fundus. enoclips noted.
chronic pain on chronic narcotics
hx VTE not currently on AC -CTA no PE, LE US no DVT
hx of DEREK
HIV on Biktarvy
Plan
Plan
CT with GGO and hemoptysis
blood cultures positive for Enterococcus faecalis and Stenotrophomonas.
agree with removal of PICC line.
false drop in hgb on am CBC to 6.4 g/dl likely from hemodilution. repeat prior to transfusion similar to hgb on admission at 8.6 g/dl. labs not suggestive for acute hemolysis. iron stores low (which can actually help to reduce risk for
veno-occlusive complications in SC disease). check stool Hemoccult. hold off on IV iron repletion with active infection, stable hgb.
continue home Hydrea, folic acid
ensure adequate hydration, supplemental O2 prn
pain management per primary service while hospitalized, has a painter mirror OP
bowel regimen prn constipation
Plans to return to her primary supervisor lead burning in [place] after discharge
Subjective/Objective
Subjective
blood tinged vomit x 1 this morning
reports 'typical' sickle pain
I reviewed her hemaglobin evaluation that showed no abnoarmalities. She stated that she has SC disease and has been on hydrea for 20 plus years.
Vital Signs:
Vital Signs
Temp Pulse Resp BP Pulse Ox
98.2 F 98 18 152/97 96
07/06/25 13:00 07/06/25 10:58 07/06/25 10:58 07/06/25 10:58 07/06/25 13:15
Lab Results:
Laboratory Data
WBC 4.6 10^3/uL (4.8-10.8) L 07/06/25 02:38
Hgb 9.1 g/dL (12.0-16.0) L 07/06/25 02:38
Plt Count 158 10^3/uL (130-400) 07/06/25 02:38
PT 15.3 Sec (11.4-14.6) H 07/04/25 08:05
INR 1.17 07/04/25 08:05
APTT 30.5 Sec (23.4-35.0) 07/04/25 08:05
eGFR > 60.00 07/06/25 02:38
Physical Exam
talking on phone during evaluation, did no make eye contact, short and vague answers to questions
HEENT: Moist Mucous Membranes; No Jaundice
Pulmonary: Other (unlabored)
Neuro: Non Focal
--- NOTE | 2025-07-06 15:57 | CM ---
CM reviewed chart, reviewed with Nursing, patient left AMA.
--- NOTE | 2025-07-07 19:32 | W.PN.UPDATE ---
Update Note
Progress Note Update
I was notified by microbiology lab that yeast is growing in blood culture. I left a message on patient's phone. I stressed the importance of calling the hospital back and returning to the hospital. I also called sister's number listed but I was
not able to reach anyone.
== END 2025-07-06 15:18 | disposition left against medical advice (07) | DRG 194 ==
LOC: 4 WEST ACU 21:40
PROVIDERS: Internal Medicine; Internal Medicine Hematology & Oncology; Nurse Practitioner Acute Care; ADMITTING PHYSICIAN Internal Medicine; ATTENDING PHYSICIAN Student in an Organized Health Care Education/Training Program; CONSULT PHYSICIAN Internal Medicine Critical Care Medicine; CONSULT PHYSICIAN Internal Medicine Gastroenterology; CONSULT PHYSICIAN Internal Medicine Hematology & Oncology; CONSULT PHYSICIAN Internal Medicine Infectious Disease; EMERGENCY PHYSICIAN Emergency Medicine; OTHER PHYSICIAN Psychiatry & Neurology Neurology
PROC: 30233N1 Transfusion of Nonautologous Red Blood Cells into Peripheral Vein, Percutaneous Approach (ICD-10-PCS; 2025-07-04)
PROC: 0DJ08ZZ Inspection of Upper Intestinal Tract, Via Natural or Artificial Opening Endoscopic (ICD-10-PCS; 2025-07-06)
DX: J18.9 Pneumonia, unspecified organism (principal); D62 Acute posthemorrhagic anemia; K92.0 Hematemesis; R78.81 Bacteremia; E87.1 Hypo-osmolality and hyponatremia; Z68.42 Body mass index [BMI] 45.0-49.9, adult; B96.89 Other specified bacterial agents as the cause of diseases classified elsewhere; B95.2 Enterococcus as the cause of diseases classified elsewhere; Z53.29 Procedure and treatment not carried out because of patient's decision for other reasons; G89.29 Other chronic pain; Z21 Asymptomatic human immunodeficiency virus [HIV] infection status; Z79.899 Other long term (current) drug therapy; Z86.73 Personal history of transient ischemic attack (TIA), and cerebral infarction without residual deficits; Z86.711 Personal history of pulmonary embolism; Z90.49 Acquired absence of other specified parts of digestive tract; Z91.041 Radiographic dye allergy status; E83.51 Hypocalcemia; E87.6 Hypokalemia; E83.42 Hypomagnesemia; E66.813 Obesity, class 3; H54.62 Unqualified visual loss, left eye, normal vision right eye; M16.0 Bilateral primary osteoarthritis of hip; Z79.891 Long term (current) use of opiate analgesic; Z91.128 Patient's intentional underdosing of medication regimen for other reason; Z98.82 Breast implant status; Z11.52 Encounter for screening for COVID-19; D57.1 Sickle-cell disease without crisis
CPT/HCPCS: 70450; 71045; 71046; 71250; 71275; 80048; 80053; 81003; 81015; 82607; 82728; 82746; 82962; 83021; 83540; 83550; 83605; 83615; 83690; 83735; 84145; 84484; 84703; 85025; 85027; 85045; 85610; 85730; 86850; 86900; 86901; 86920; 87040; 87077; 87154; 87184; 87186; 87205; 87502; 87811; 93005; 93970; 94760; 96361; 96365; 96375; 96376; 99285; J2997; P9016; Q9967